=== PATIENT | female | born 1945 | race Caucasian/White ===

== ENCOUNTER 2017-02-09 19:58 | Observation (INO) | payer MEDICARE, OTHER ==
[2017-02-09] MEDS ORDERED: Zofran 4 MG/2 ML VIAL IV ONE ×2 (20:30→22:43)
[2017-02-09] MEDS ORDERED: Sodium Chloride 0.9% 1000 ML 1,000 ML IV STA ×2 (20:30→23:06)
[2017-02-09] MEDS ORDERED: PROTONIX 40 MG IV IV ONE ×2 (20:30→20:56)
--- NOTE | 2017-02-09 20:30 | ERPHSYRPT ---
- History of Present Illness Time Seen by Provider: 02/09/17 20:00 Historian: patient, family Exam Limitations: no limitations Patient Subjective Stated Complaint: STATES THAT SHE HAS HAD NVD X SEVERAL EPISODES SINCE 0500 TODAY AND BEGAN TO HAVE DIZZINESS AND NEAR SYNCOPE "JUST EARLIER" - STATES THAT HER IS IN THE HOSPITAL WITH C-DIFF AND SHE IS CONCERNED THAT SHE MAY BE DEHYDRATED Triage Nursing Assessment: AMBULANCE TO TREATMENT AREA - LIFTED TO CART PER EMS PERSONNEL - MOVES ALL EXTREMITIES WITH SOME RIGIDITY PER CHRONIC PAIN. ALERT/ ORIENTED - JOLLY AFFECT. SKIN PALE/DRY - NO RASH/INJURY. RESPS EASY - NON- LABORED Timing/Duration: today, hour(s) (15) Activities at Onset: other (ate at restaurant prior to Sx onset) Quality: cramping Abdominal Pain Onset Location: generalized abdomen Pain Radiation: no radiation Severity of Pain-Max: mild Severity of Pain-Current: mild Modifying Factors: Improves With: eating, vomiting Associated Symptoms: diarrhea, weakness, No fever/chills Previous symptoms: no prior history Allergies/Adverse Reactions: Penicillins Allergy (Verified 02/09/17 20:02) codeine Adverse Reaction (Severe, Verified 02/09/17 20:02) morphine Adverse Reaction (Verified 02/09/17 20:02) Hx Tetanus, Diphtheria Vaccination/Date Given: Yes Hx Influenza Vaccination/Date Given: Yes Hx Pneumococcal Vaccination/Date Given: No Immunizations Up to Date: Yes - Review of Systems Constitutional: Weakness Eyes: No Symptoms Ears, Nose, & Throat: No Symptoms Respiratory: No Symptoms Cardiac: No Symptoms Abdominal/Gastrointestinal: Abdominal Pain, Nausea, Vomiting, Diarrhea, No Hematemesis, No Hematochezia, No Melena Genitourinary Symptoms: No Symptoms Musculoskeletal: No Symptoms Skin: No Symptoms Neurological: Dizziness Psychological: No Symptoms Endocrine: No Symptoms Hematologic/Lymphatic: No Symptoms - Past Medical History Pertinent Past Medical History: Yes Neurological History: TIA Cardiac History: High Cholesterol, Hypertension Respiratory History: CHF Endocrine Medical History: Hypothyroidism Musculoskeletal History: Other GI Medical History: GERD Psycho-Social History: Depression Other Medical History: CHRONIC BACK AND KNEE PAIN - Past Surgical History Past Surgical History: Yes Gastrointestinal: Cholecystectomy Female Surgical History: Hysterectomy - Social History Smoking Status: Never smoker Exposure to second hand smoke: No Drug Use: none Patient Lives Alone: No - Female History Hx Last Menstrual Period: N/A - Nursing Vital Signs Nursing Vital Signs: Initial Vital Signs Temperature 101.0 F Temperature Source Oral Pulse Rate 90 Respiratory Rate 18 Blood Pressure [Left Arm] 157/63 Pain Intensity 8 - Physical Exam General Appearance: mild distress Eye Exam: eyes nml inspection, No scleral icterus Ears, Nose, Throat Exam: normal ENT inspection, pharynx normal, dry mucous membranes Neck Exam: normal inspection, non-tender, supple, full range of motion Respiratory Exam: normal breath sounds, lungs clear, airway intact Cardiovascular Exam: regular rate/rhythm, normal heart sounds, normal peripheral pulses Gastrointestinal/Abdomen Exam: soft, normal bowel sounds, No tenderness, No distention Back Exam: normal inspection, normal range of motion Extremity Exam: normal inspection, normal range of motion, pelvis stable Neurologic Exam: alert, oriented x 3, cooperative Skin Exam: normal color, warm, dry SpO2 Interpretation: normal SpO2: 95 Oxygen Delivery: Room Air - Course Nursing assessment & vital signs reviewed: Yes EKG Interpreted by Me: RATE, Sinus Rhythm (90), NORMAL AXIS, NORMAL INTERVALS, NORMAL QRS, Other (No acute ischemia.) Ordered Tests: Active Orders 24 hr Category Date Time Status EKG-ER Only STAT Care 02/09/17 20:30 Active IV Insertion STAT Care 02/09/17 20:14 Active NPO (ED) STAT Care 02/09/17 20:30 Active Orthostatic Vital Signs STAT Care 02/09/17 22:43 Active ABDOMEN AND PELVIS W CONTRAST [CT] Stat Exams 02/09/17 20:32 Taken CHEST 1 VIEW (PORTABLE) Stat Exams 02/09/17 20:31 Taken BLOOD CULTURE Stat Lab 02/09/17 21:00 Received CBC W DIFF Stat Lab 02/09/17 20:54 Completed CMP Stat Lab 02/09/17 20:54 Completed LIPASE Stat Lab 02/09/17 20:54 Completed Lactic Acid Stat Lab 02/09/17 21:04 Completed PROTIME WITH INR Stat Lab 02/09/17 20:54 Completed UA Stat Lab 02/09/17 20:31 Ordered Transfer Order Routine Transfer 02/09/17 23:05 Ordered Medication Summary Generic Name Dose Route Start Last Admin Trade Name Freq PRN Reason Stop Dose Admin Levofloxacin/Dextrose 100 mls @ 100 mls/hr 02/09/17 22:56 Levofloxacin 500mg/100ml D5w IV 02/09/17 23:55 STAT ONE Metronidazole 100 mls @ 100 mls/hr 02/09/17 22:53 Flagyl 500 Mg Ivpb IV 02/09/17 23:52 STAT ONE Sodium Chloride 1,000 mls @ 999 mls/hr 02/09/17 23:06 02/09/17 23:07 Sodium Chloride 0.9% 1000 Ml IV 02/10/17 00:06 999 mls/hr .Q1H1M STA Administration Discontinued Medications Generic Name Dose Route Start Last Admin Trade Name Delfina PRN Reason Stop Dose Admin Acetaminophen 625 mg 02/09/17 21:07 02/09/17 21:36 Tylenol 325 Mg PO 02/09/17 21:08 Not Given STAT STA Acetaminophen 650 mg 02/09/17 21:34 02/09/17 21:36 Tylenol 325 Mg PO 02/09/17 21:35 650 mg STAT STA Administration Acetaminophen Confirm 02/09/17 21:35 Tylenol 325 Mg Administered 02/09/17 21:36 Dose 650 mg .ROUTE .STK-MED ONE Sodium Chloride 1,000 mls @ 999 mls/hr 02/09/17 20:30 02/09/17 20:14 Sodium Chloride 0.9% 1000 Ml IV 02/09/17 21:30 999 mls/hr .Q1H1M STA Administration Sodium Chloride Confirm 02/09/17 22:48 Sodium Chloride 0.9% 1000 Ml Administered 02/09/17 22:49 Dose 1,000 mls @ ud .ROUTE .STK-MED ONE Ketorolac Tromethamine 30 mg 02/09/17 22:43 02/09/17 22:55 Toradol 30 Mg Injection IV 02/09/17 22:44 30 mg STAT ONE Administration Ketorolac Tromethamine Confirm 02/09/17 22:48 Toradol 30 Mg Injection Administered 02/09/17 22:49 Dose 30 mg .ROUTE .STK-MED ONE Ondansetron HCl 4 mg 02/09/17 20:30 02/09/17 20:59 Zofran 4 Mg/2 Ml Vial IV 02/09/17 20:31 4 mg STAT ONE Administration Ondansetron HCl Confirm 02/09/17 20:56 Zofran 4 Mg/2 Ml Vial Administered 02/09/17 20:57 Dose 4 mg .ROUTE .STK-MED ONE Ondansetron HCl 4 mg 02/09/17 22:43 02/09/17 22:56 Zofran 4 Mg/2 Ml Vial IV 02/09/17 22:44 4 mg STAT ONE Administration Ondansetron HCl Confirm 02/09/17 22:48 Zofran 4 Mg/2 Ml Vial Administered 02/09/17 22:49 Dose 4 mg .ROUTE .STK-MED ONE Pantoprazole Sodium 40 mg 02/09/17 20:30 02/09/17 21:00 Protonix 40 Mg Iv IV 02/09/17 20:31 40 mg STAT ONE Administration Pantoprazole Sodium Confirm 02/09/17 20:56 Protonix 40 Mg Iv Administered 02/09/17 20:57 Dose 40 mg IV .STK-MED ONE Potassium Chloride 40 meq 02/09/17 21:22 02/09/17 21:36 Klor Con 10 Meq PO 02/09/17 21:23 40 meq STAT ONE Administration Potassium Chloride Confirm 02/09/17 21:35 Klor Con 10 Meq Administered 02/09/17 21:36 Dose 40 meq PO .STK-MED ONE Lab/Rad Data: Laboratory Result Diagrams 02/09/17 20:54 02/09/17 20:54 Laboratory Results 02/09/17 02/09/17 02/09/17 Range/Units 21:04 20:54 20:54 WBC (4.0-10.5) K/mm3 RBC (4.1-5.4) M/mm3 Hgb (12.0-16.0) gm/dl Hct (35-47) % MCV (78-100) fl MCH (26-32) pg MCHC (32-36) g/dl RDW (11.5-14.0) % Plt Count (150-450) K/mm3 MPV (6-9.5) fl Gran % (36.0-66.0) % Lymphocytes % (24.0-44.0) % Monocytes % (0.0-12.0) % Eosinophils % (0.00-5.0) % Basophils % (0.0-0.4) % Basophils # (0-0.4) INR 1.13 (0.8-3.0) Sodium 135 L (136-145) mEq/L Potassium 3.3 L (3.5-5.1) mEq/L Chloride 93 L (98-107) mEq/L Carbon Dioxide 32.9 H (21-32) mEq/L Anion Gap 12.2 (5-15) MEQ/L BUN 12 (9-20) mg/dL Creatinine 0.82 (0.55-1.30) mg/dl Estimated GFR > 60 ML/MIN Glucose 169 H (70-110) MG/DL Lactic Acid 2.0 (0.4-2.0) Calcium 9.1 (8.5-10.1) mg/dL Total Bilirubin 0.8 (0.2-1.0) mg/dL AST 25 (15-37) U/L ALT 24 (12-78) U/L Alkaline Phosphatase 75 (46-116) U/L Serum Total Protein 7.7 (6.4-8.2) gm/dL Albumin 3.8 (3.4-5.0) g/dL Lipase 68 L (73-393) U/L // Range/Units 20:54 WBC 9.3 (4.0-10.5) K/mm3 RBC 4.26 (4.1-5.4) M/mm3 Hgb 13.6 (12.0-16.0) gm/dl Hct 40.0 (35-47) % MCV 93.9 (78-100) fl MCH 31.9 (26-32) pg MCHC 34.0 (32-36) g/dl RDW 12.4 (11.5-14.0) % Plt Count 221 (150-450) K/mm3 MPV 9.3 (6-9.5) fl Gran % 90.5 H (36.0-66.0) % Lymphocytes % 6.8 L (24.0-44.0) % Monocytes % 2.6 (0.0-12.0) % Eosinophils % 0.0 (0.00-5.0) % Basophils % 0.1 (0.0-0.4) % Basophils # 0.01 (0-0.4) INR (0.8-3.0) Sodium (136-145) mEq/L Potassium (3.5-5.1) mEq/L Chloride (98-107) mEq/L Carbon Dioxide (21-32) mEq/L Anion Gap (5-15) MEQ/L BUN (9-20) mg/dL Creatinine (0.55-1.30) mg/dl Estimated GFR ML/MIN Glucose (70-110) MG/DL Lactic Acid (0.4-2.0) Calcium (8.5-10.1) mg/dL Total Bilirubin (0.2-1.0) mg/dL AST (15-37) U/L ALT (12-78) U/L Alkaline Phosphatase (46-116) U/L Serum Total Protein (6.4-8.2) gm/dL Albumin (3.4-5.0) g/dL Lipase (73-393) U/L - Progress Progress: improved Discussed with Dr.: Pierre (accepts as observation) Counseled pt/family regarding: lab results, diagnosis, need for follow-up, rad results - Departure Time of Disposition: 23:00 Departure Disposition: Observation Clinical Impression: Dehydration Sepsis Qualifiers: Sepsis type: sepsis due to unspecified organism Qualified Code(s): A41.9 - Sepsis, unspecified organism Diarrhea Qualifiers: Diarrhea type: unspecified type Qualified Code(s): R19.7 - Diarrhea, unspecified Condition: Stable Critical Care Time: Yes Critical Care Time(excluding separately billable procedures): 75-104 minutes
[2017-02-09] MEDS ORDERED: Zofran 4 MG/2 ML VIAL ONE ×2 (20:56→22:48)
[2017-02-09 20:57] LABS: BASOPHIL % 0.1 % (0.0-0.4); Granulocytes % 90.5 % (36.0-66.0); Lymphocytes % 6.8 % (24.0-44.0); Mean Cell Volume 93.9 fl (78-100); Mean Corpuscular Hemoglobin 31.9 pg (26-32); Mean Platelet Volume 9.3 fl (6-9.5); Monocytes % 2.6 % (0.0-12.0); Platelet Count 221 K/mm3 (150-450); Red Blood Count 4.26 M/mm3 (4.1-5.4); Red Cell Distribution Width 12.4 % (11.5-14.0); White Blood Count 9.3 K/mm3 (4.0-10.5)
[2017-02-09] MEDS ORDERED: TYLENOL 325 MG PO STA ×2 (21:07→21:34)
[2017-02-09 21:13] LABS: INR 1.13 (0.8-3.0); PROTIME 12.6 SECONDS (9.95-12.35)
[2017-02-09 21:19] LABS: ALBUMIN 3.8 g/dL (3.4-5.0); ALKALINE PHOSPHATASE 75 U/L (46-116); ANION GAP 12.2 MEQ/L (5-15); BILIRUBIN,TOTAL 0.8 mg/dL (0.2-1.0); BLOOD UREA NITROGEN 12 mg/dL (9-20); CHLORIDE 93 mEq/L (98-107); Carbon Dioxide 32.9 mEq/L (21-32); Glucose 169 MG/DL (70-110); LIPASE 68 U/L (73-393); Potassium 3.3 mEq/L (3.5-5.1); SGOT/AST 25 U/L (15-37); SGPT/ALT 24 U/L (12-78); SODIUM 135 mEq/L (136-145); Total Protein 7.7 gm/dL (6.4-8.2)
[2017-02-09] MEDS ORDERED: Klor Con 10 MEQ PO ONE ×2 (21:22→21:35)
[2017-02-09] MEDS ORDERED: TYLENOL 325 MG ONE (21:35)
[2017-02-09] MEDS ORDERED: TORAdol 30 mg Injection IV ONE (22:43)
[2017-02-09] MEDS ORDERED: Sodium Chloride 0.9% 1000 ML 2,000 ML ONE (22:48)
[2017-02-09] MEDS ORDERED: TORAdol 30 mg Injection ONE (22:48)
[2017-02-09] MEDS ORDERED: FLAGYL 500 MG IVPB 100 ML IV ONE (22:53)
[2017-02-09] MEDS ORDERED: Levofloxacin 500MG/100ML D5W 100 ML IV ONE (22:56)
[2017-02-09] MEDS ORDERED: FLAGYL 500 MG IV ONE (23:15)
[2017-02-09 23:45] LABS: Collection Type CLEAN CATCH
[2017-02-09 23:46] LABS: Bacteria MODERATE /HPF (NEGATIVE); COMPLETE URINE MICROSCOPIC? YES; Epithelial Cells FEW /HPF (FEW); Ph 6.5 (5-6); WBC 0-2 /HPF (0-5)
[2017-02-09] MEDS ORDERED: Zofran 4 MG/2 ML VIAL IV PRN (23:50)
[2017-02-09] MEDS ORDERED: MORPHINE SULFATE 4 MG INJ IV PRN (23:50)
[2017-02-09] MEDS ORDERED: TORAdol 30 mg Injection IV PRN (23:50)
[2017-02-10] MEDS ORDERED: CLARITIN-D 24HR TABLET PO SCH (01:15)
[2017-02-10] MEDS: CLARITIN 10 MG PO SCH ×2 (01:34→22:20)
[2017-02-10] MEDS: FLAGYL 500 MG IVPB 100 ML IV SCH ×4 (01:35→17:18)
[2017-02-10] MEDS: ZOCOR 20MG PO SCH ×2 (01:35→22:21)
[2017-02-10] MEDS: Lopressor 50 MG PO SCH ×3 (01:35→22:21)
[2017-02-10] MEDS: ceLEXa 20 MG PO SCH ×2 (01:35→22:20)
[2017-02-10] MEDS: celeBREX 100 MG PO SCH ×3 (01:35→22:20)
[2017-02-10] MEDS: xanAX 0.5 MG PO SCH ×2 (01:35→22:21)
[2017-02-10] MEDS ORDERED: TYLENOL 325 MG PO PRN (07:09)
[2017-02-10] MEDS ORDERED: MEDICATION INTERVENTION MC PRN (07:23)
[2017-02-10] MEDS: LASIX 20 MG PO SCH (09:29)
[2017-02-10] MEDS: Calcium 500MG W/Vit D Tablet PO SCH ×2 (09:29→22:20)
[2017-02-10] MEDS: SYNTHROID 50 MCG PO SCH (09:29)
[2017-02-10] MEDS: Ocuvite Tablet PO SCH (09:29)
[2017-02-10] MEDS: Ecotrin 325 MG PO SCH (09:29)
[2017-02-10] MEDS: Protonix 40MG Tablet PO SCH (09:29)
[2017-02-10] MEDS: ANUSOL-HC 2.5% CREAM 30 GM TOP SCH ×2 (09:30→22:18)
[2017-02-10] MEDS: Maxzide-25MG Tablet PO SCH (09:30)
--- NOTE | 2017-02-10 09:33 | XRAY ---
Indication: Nausea, vomiting, and cough. Comparison: None Portable chest demonstrates right hemidiaphragm elevation and left hilar calcified nodes. Remaining heart and lungs normal. Bony thorax intact.
--- NOTE | 2017-02-10 09:38 | XRAY ---
Indication: Nausea, vomiting, and diarrhea. Multiple contiguous axial images obtained through the abdomen and pelvis using 80 cc Isovue 370 contrast only. Comparison: None Lung bases demonstrates minimal bibasilar fibrosis/scarring and left infrahilar calcified nodes. Heart is not enlarged. Noncontrasted stomach and bowel loops appear nonobstructed. Minimal sigmoid diverticulosis without diverticulitis. Normal appendix. Previous hysterectomy and reported cholecystectomy. No free fluid/air. Mild fatty liver. Remaining liver, pancreas, spleen, adrenal glands, kidneys, ureters, and bladder appear unremarkable. Mild aortoiliac calcifications. No AAA or pathologic retroperitoneal lymphadenopathy. Osseous structures intact with moderate degenerative changes throughout the spine. Large mesh graft overlies the right upper quadrant abdominal wall. No ventral/inguinal hernias. Impression: 1. Minimal sigmoid diverticulosis without diverticulitis. 2. Fatty liver. 3. No acute intra-abdominal/pelvic abnormalities. Comment: Preliminary interpretation was made by [facility]. No critical discrepancy. CT DI 23.40
[2017-02-10] MEDS ORDERED: CALCIUM CARBONATE PO SCH (10:00)
[2017-02-10] MEDS ORDERED: [UNRECOGNIZED DRUG - OTHER] PO SCH (10:00)
[2017-02-10] MEDS ORDERED: POTASSIUM GLUCONATE PO SCH ×2 (10:00→22:00)
[2017-02-10] MEDS ORDERED: VITAMIN D3 PO SCH (10:00)
[2017-02-10] MEDS ORDERED: Levofloxacin 500MG/100ML D5W 100 ML IV SCH ×2 (10:00→22:00)
[2017-02-10] MEDS ORDERED: [UNRECOGNIZED DRUG - OTHER] PO SCH (10:00)
[2017-02-10] MEDS ORDERED: HYDROCORTISONE TP SCH (10:00)
[2017-02-10] MEDS ORDERED: NON-FORMULARY ITEM (Triamterene/Hydrochlorothiazid [Triamterene-Hctz 75-50 Mg Tab] 1 EACH) PO SCH (10:00)
[2017-02-10] MEDS ORDERED: PREVNAR 13 SYRINGE IM ONE (10:00)
[2017-02-10] MEDS: Sodium Chloride 0.9% 1000 ML 1,000 ML IV SCH ×2 (12:14→23:56)
[2017-02-10] MEDS ORDERED: PROTONIX 40 MG IV IV SCH (22:00)
[2017-02-10] MEDS ORDERED: DESYREL 50 MG PO SCH (22:00)
[2017-02-10] MEDS: Lomotil PO PRN (22:21)
[2017-02-11] MEDS: FLAGYL 500 MG IVPB 100 ML IV SCH ×2 (00:06→07:03)
[2017-02-11] MEDS: Sodium Chloride 0.9% 1000 ML 1,000 ML IV SCH (00:07)
[2017-02-11] MEDS: Lomotil PO PRN (05:01)
[2017-02-11] MEDS: Flagyl 500 MG PO SCH ×2 (06:47→09:25)
--- NOTE | 2017-02-11 08:10 | PCM.SSS ---
History of Present Illness - Chief Complaint Chief Complaint: vomiting/diarrhea for 1-2 days History of Present Illness: is a 71 year old female. - Review of Systems Constitutional: Fever, No Chills Eyes: No Symptoms Ears, Nose, & Throat: No Symptoms Respiratory: No Cough, No Short Of Breath Cardiac: No Chest Pain, No Edema, No Syncope Abdominal/Gastrointestinal: Abdominal Pain, Nausea, Vomiting, Diarrhea Genitourinary Symptoms: No Dysuria Musculoskeletal: No Back Pain, No Neck Pain Skin: No Rash Neurological: No Dizziness, No Focal Weakness, No Sensory Changes Psychological: No Symptoms Endocrine: No Symptoms Hematologic/Lymphatic: No Symptoms Immunological/Allergic: No Symptoms Medications & Allergies Home Medications: Home Medication List Acetaminophen 325 mg [Tylenol 325 mg] 650 mg PO Q4H PRN 02/09/17 [History Confirmed 02/10/17] Alprazolam [Xanax] 0.5 mg PO HS 02/09/17 [History Confirmed 02/10/17] Atorvastatin Calcium [Lipitor 20MG Tablet] 1 tab PO HS 02/09/17 [History Confirmed 02/10/17] Calcium Carbonate/Vitamin D3 [Calcium 600 + Vit D 400 Tablet] 1 each PO BID [History Confirmed 02/10/17] Celecoxib 100 mg [celeBREX 100 MG] 100 mg PO BID 02/09/17 [History Confirmed 02/10/17] Citalopram Hydrobromide [Celexa] 40 mg PO HS 02/09/17 [History Confirmed ] Furosemide 20 mg [Lasix 20 mg] 20 mg PO DAILY 02/09/17 [History Confirmed 02/10/17] Levothyroxine Sodium 50 Mcg [Synthroid 50 Mcg] 50 mcg PO DAILY 02/09/17 [ History Confirmed 02/09/17] Metoprolol Tartrate 50 mg [Lopressor 50 MG] 50 mg PO BID 02/09/17 [ History Confirmed 02/10/17] PANTOPRAZOLE 40 mg Tablet [Protonix 40MG Tablet] 40 mg PO QAM 02/09/17 [ History Confirmed 02/09/17] Trazodone HCl 50 mg [Desyrel 50 mg] 100 mg PO HS 02/09/17 [History Confirmed 02/10/17] Triamterene/Hydrochlorothiazid [Triamterene-Hctz 75-50 mg Tab] 1 each PO DAILY 02/09/17 [History Confirmed 02/10/17] Aspirin EC 325 mg [Ecotrin 325 MG] 325 mg PO DAILY 02/10/17 [History Confirmed 02/10/17] Beta-Carotene(A) W-C & E/Min [Opti-Vitamins Tablet] 1 each PO DAILY 02/10/17 [ History Confirmed 02/10/17] Hydrocortisone [Proctosol-Hc] 28.35 gm TP BID 02/10/17 [History Confirmed ] Loratadine [Claritin] 10 mg PO HS 02/10/17 [History Confirmed 02/10/17] Potassium Gluconate [Potassium] 1 tab PO HS 02/10/17 [History Confirmed 02/10/17 ] Potassium Gluconate [Potassium] 2 tab PO QAM 02/10/17 [History Confirmed ] Metronidazole 500 mg [Flagyl 500 MG] 500 mg PO TID #15 tablet 02/11/17 [Rx ] Allergies/Adverse Reactions: Allergies Allergy/AdvReac Type Severity Reaction Status Date / Time Penicillins Allergy Verified 02/09/17 20:02 codeine AdvReac Severe Verified 02/09/17 20:02 morphine AdvReac Verified 02/09/17 20:02 - Past Medical History Past Medical History: Yes Neurological History: TIA Cardiac History: High Cholesterol, Hypertension Respiratory History: CHF Endocrine Medical History: Hypothyroidism Musculoskelatal History: Other GI Medical History: GERD Pyscho-Social History: Depression Reproductive Disorders: No Pertinent History Comment: CHRONIC BACK AND KNEE PAIN, sciatica - Female History Hx Last Menstrual Period: N/A Are you now?: No - Past Surgical History Past Surgical History: Yes Neuro Surgical History: No Pertinent History Cardiac History: No Pertinent History Respiratory Surgery: No Pertinent History GI Surgical History: Cholecystectomy Genitourinary Surgical Hx: No Pertinent History Musculskeletal Surgical Hx: No Pertinent History Female Surgical History: Hysterectomy Other Surgical History: inactive kidney disease - Social History Smoking Status: Never smoker Exposure to second hand smoke: No Alcohol: None Drug Use: none - Physical Exam Vital Signs: Vital Signs - 24 hr Temp Pulse Resp BP Pulse Ox 02/11/17 04:00 98.3 F 81 18 128/59 94 L 02/11/17 00:00 20 02/10/17 23:46 98.4 F 82 20 148/63 94 L 02/10/17 20:00 20 02/10/17 19:54 98.5 F 75 20 124/58 93 L 02/10/17 16:00 18 02/10/17 15:42 98.6 F 77 18 172/82 93 L 02/10/17 12:00 98.4 F 86 18 133/64 91 L General Appearance: no apparent distress, alert Neurologic Exam: alert, oriented x 3, cooperative, normal mood/affect, nml cerebellar function, nml station & gait, sensation nml, No motor deficits Eye Exam: PERRL/EOMI, eyes nml inspection Ears, Nose, Throat Exam: normal ENT inspection, TMs normal, pharynx normal, moist mucous membranes Neck Exam: normal inspection, non-tender, supple, full range of motion Respiratory Exam: normal breath sounds, lungs clear, No respiratory distress Cardiovascular Exam: regular rate/rhythm, normal heart sounds, normal peripheral pulses Gastrointestinal/Abdomen Exam: soft, tenderness (generalised), No mass Rectal Exam: not done Back Exam: normal inspection, normal range of motion, No CVA tenderness, No vertebral tenderness Extremity Exam: normal inspection, normal range of motion, pelvis stable Skin Exam: normal color, warm, dry, No rash Lymphatic Exam: No adenopathy Assessment/Plan (1) Dehydration Current Visit: Yes Status: Resolved Code(s): E86.0 - DEHYDRATION (2) Diarrhea Current Visit: Yes Status: Resolved Qualifiers: Diarrhea type: unspecified type Qualified Code(s): R19.7 - Diarrhea, unspecified Code(s): R19.7 - DIARRHEA, UNSPECIFIED (3) Sepsis Current Visit: Yes Status: Resolved Qualifiers: Sepsis type: sepsis due to unspecified organism Qualified Code(s): A41.9 - Sepsis, unspecified organism Hospital Summary - Hospital Course Hospital Course: Chief Complaint Diagnosis sepsis, vomiting/diarrhea Allergies Allergy/AdvReac Type Severity Reaction Status Date / Time Penicillins Allergy Verified 02/09/17 20:02 codeine AdvReac Severe Verified 02/09/17 20:02 morphine AdvReac Verified 02/09/17 20:02 Vital Signs (Last 24 hours) Temp Pulse Resp BP Pulse Ox 02/11/17 04:00 98.3 F 81 18 128/59 94 L 02/11/17 00:00 20 02/10/17 23:46 98.4 F 82 20 148/63 94 L 02/10/17 20:00 20 02/10/17 19:54 98.5 F 75 20 124/58 93 L 02/10/17 16:00 18 02/10/17 15:42 98.6 F 77 18 172/82 93 L 02/10/17 12:00 98.4 F 86 18 133/64 91 L Home Medications Medication Instructions Recorded Confirmed Last Taken Type Acetaminophen 325 mg [Tylenol 650 mg PO Q4H PRN 02/09/17 02/10/17 Unknown History 325 mg] Alprazolam [Xanax] 0.5 mg PO HS 02/09/17 02/10/17 02/08/17 22:00 History Atorvastatin Calcium [Lipitor 20MG 1 tab PO HS 02/09/17 02/10/17 02/08/17 22:00 History Tablet] Calcium Carbonate/Vitamin D3 1 each PO BID 02/09/17 02/10/17 02/09/17 10:00 History [Calcium 600 + Vit D 400 Tablet] Celecoxib 100 mg [celeBREX 100 100 mg PO BID 02/09/17 02/10/17 02/09/17 10:00 History MG] Citalopram Hydrobromide [Celexa] 40 mg PO HS 02/09/17 02/10/17 02/08/17 22:00 History Furosemide 20 mg [Lasix 20 20 mg PO DAILY 02/09/17 02/10/17 02/09/17 10:00 History mg] Levothyroxine Sodium 50 Mcg 50 mcg PO DAILY 02/09/17 02/09/17 02/08/17 10:00 History [Synthroid 50 Mcg] Metoprolol Tartrate 50 mg 50 mg PO BID 02/09/17 02/10/17 02/09/17 10:00 History [Lopressor 50 MG] PANTOPRAZOLE 40 mg Tablet 40 mg PO QAM 02/09/17 02/09/17 02/08/17 10:00 History [Protonix 40MG Tablet] Trazodone HCl 50 mg [Desyrel 50 100 mg PO 02/09/17 02/10/17 02/08/17 22: 00 History mg] Triamterene/Hydrochlorothiazid 1 each PO DAILY 02/09/17 02/10/17 02/09/17 10:00 History [Triamterene-Hctz 75-50 mg Tab] Aspirin EC 325 mg [Ecotrin 325 325 mg PO DAILY 02/10/17 02/10/17 02/09/17 10: 00 History MG] Beta-Carotene(A) W-C & E/Min 1 each PO DAILY 02/10/17 02/10/17 02/09/17 10:00 History [Opti-Vitamins Tablet] Hydrocortisone [Proctosol-Hc] 28.35 gm TP BID 02/10/17 02/10/17 02/08/17 10:00 History Loratadine [Claritin] 10 mg PO 02/10/17 02/10/17 02/08/17 History Potassium Gluconate [Potassium] 1 tab PO 02/10/17 02/10/17 02/08/17 22:00 History Potassium Gluconate [Potassium] 2 tab PO QA 02/10/17 02/10/17 02/09/17 10:00 History Current Medications Generic Name Dose Route Start Last Admin Trade Name Freq PRN Reason Stop Dose Admin Acetaminophen 650 mg 02/10/17 07:09 Tylenol 325 Mg PO 03/12/17 07:08 Q4HPRN PRN pain or fever Alprazolam 0.5 mg 02/10/17 01:00 02/10/17 22:21 Xanax 0.5 Mg PO 03/12/17 00:59 0.5 mg HS CHANO Administration Aspirin 325 mg 02/10/17 10:00 02/10/17 09:29 Ecotrin 325 Mg PO 03/12/17 09:59 325 mg DAILY CHANO Administration Calcium Carbonate 1 tab 02/10/17 10:00 02/10/17 22:20 Calcium 500mg W/Vit D Tablet PO 03/12/17 09:59 1 tab BID CHANO Administration Celecoxib 100 mg 02/10/17 01:15 02/10/17 22:20 Celebrex 100 Mg PO 03/12/17 01:14 100 mg BID CHANO Administration Citalopram Hydrobromide 40 mg 02/10/17 01:15 02/10/17 22:20 Celexa 20 Mg PO 03/12/17 01:14 40 mg HS CHANO Administration Diphenoxylate HCl/Atropine 1 tablet 02/10/17 22:03 02/11/17 05:01 Lomotil PO 03/12/17 22:02 1 tablet Q4H PRN PRN Administration DIARRHEA Furosemide 20 mg 02/10/17 10:00 02/10/17 09:29 Lasix 20 Mg PO 03/12/17 09:59 20 mg DAILY CHANO Administration Hydrocortisone 0 gm 02/10/17 10:00 02/10/17 22:18 Anusol-Hc 2.5% Cream 30 Gm TOP 03/12/17 09:59 1 gm BID CHANO Administration Levofloxacin/Dextrose 100 mls @ 100 mls/hr 02/10/17 22:00 02/10/17 23:49 Levofloxacin 500mg/100ml D5w IV 03/12/17 21:59 100 mls/hr Q24H22 CHANO Administration Levothyroxine Sodium 50 mcg 02/10/17 10:00 02/10/17 09:29 Synthroid 50 Mcg PO 03/12/17 09:59 50 mcg DAILY CHANO Administration Loratadine 10 mg 02/10/17 01:30 02/10/17 22:20 Claritin 10 Mg PO 03/12/17 01:29 10 mg HS CHANO Administration Metoprolol Tartrate 50 mg 02/10/17 01:15 02/10/17 22:21 Lopressor 50 Mg PO 03/12/17 01:14 50 mg BID CHANO Administration Metronidazole 500 mg 02/11/17 06:00 02/11/17 06:47 Flagyl 500 Mg PO 03/13/17 05:59 500 mg TID CHANO Administration Multivitamins/Minerals 1 tab 02/10/17 10:00 02/10/17 09:29 Ocuvite Tablet PO 03/12/17 09:59 1 tab DAILY CHANO Administration Ondansetron HCl 4 mg 02/09/17 23:50 02/10/17 09:38 Zofran 4 Mg/2 Ml Vial IV 03/11/17 23:49 4 mg Q6H PRN PRN Administration NAUSEA/VOMITING Pantoprazole Sodium 40 mg 02/10/17 10:00 02/10/17 09:29 Protonix 40mg Tablet PO 03/12/17 09:59 40 mg QAM CHANO Administration Simvastatin 20 mg 02/10/17 01:15 02/10/17 22:21 Zocor 20mg PO 03/12/17 01:14 20 mg HS CHANO Administration Trazodone HCl 100 mg 02/10/17 22:00 02/10/17 22:20 Desyrel 50 Mg PO 03/12/17 21:59 100 mg HS CHANO Administration Triamterene/HCTZ 2 tab 02/10/17 10:00 02/10/17 09:30 Maxzide-25mg Tablet PO 03/12/17 09:59 2 tab DAILY CHANO Administration Discontinued Medications Generic Name Dose Route Start Last Admin Trade Name Freq PRN Reason Stop Dose Admin Acetaminophen 625 mg 02/09/17 21:07 02/09/17 21:36 Tylenol 325 Mg PO 02/09/17 21:08 Not Given STAT STA Acetaminophen 650 mg 02/09/17 21:34 02/09/17 21:36 Tylenol 325 Mg PO 02/09/17 21:35 650 mg STAT STA Administration Acetaminophen Confirm 02/09/17 21:35 Tylenol 325 Mg Administered 02/09/17 21:36 Dose 650 mg .ROUTE .STK-MED ONE Sodium Chloride 1,000 mls @ 999 mls/hr 02/09/17 20:30 02/09/17 20:14 Sodium Chloride 0.9% 1000 Ml IV 02/09/17 21:30 999 mls/hr .Q1H1M STA Administration Sodium Chloride Confirm 02/09/17 22:48 Sodium Chloride 0.9% 1000 Ml Administered 02/09/17 22:49 Dose 1,000 mls @ ud .ROUTE .STK-MED ONE Levofloxacin/Dextrose 100 mls @ 100 mls/hr 02/09/17 22:56 02/10/17 04:08 Levofloxacin 500mg/100ml D5w IV 02/09/17 23:55 Not Given STAT ONE Metronidazole 100 mls @ 100 mls/hr 02/09/17 22:53 02/09/17 23:16 Flagyl 500 Mg Ivpb IV 02/09/17 23:52 100 mls/hr STAT ONE Administration Sodium Chloride 1,000 mls @ 999 mls/hr 02/09/17 23:06 02/09/17 23:07 Sodium Chloride 0.9% 1000 Ml IV 02/10/17 00:06 999 mls/hr .Q1H1M STA Administration Metronidazole Confirm 02/09/17 23:15 Flagyl 500 Mg Ivpb Administered 02/09/17 23:16 Dose 100 mls @ ud IV .STK-MED ONE Levofloxacin/Dextrose 100 mls @ 100 mls/hr 02/10/17 10:00 02/10/17 02:45 Levofloxacin 500mg/100ml D5w IV 03/12/17 09:59 100 mls/hr Q24H10 CHANO Administration Metronidazole 100 mls @ 100 mls/hr 02/10/17 00:00 02/11/17 07:03 Flagyl 500 Mg Ivpb IV 03/12/17 00:00 Not Given Q6HT CHANO Sodium Chloride 1,000 mls @ 100 mls/hr 02/09/17 23:50 02/11/17 00:07 Sodium Chloride 0.9% 1000 Ml IV 03/11/17 23:49 Not Given .Q10H CHANO Ketorolac Tromethamine 30 mg 02/09/17 22:43 02/09/17 22:55 Toradol 30 Mg Injection IV 02/09/17 22:44 30 mg STAT ONE Administration Ketorolac Tromethamine Confirm 02/09/17 22:48 Toradol 30 Mg Injection Administered 02/09/17 22:49 Dose 30 mg .ROUTE .STK-MED ONE Ketorolac Tromethamine 30 mg 02/09/17 23:50 Toradol 30 Mg Injection IV 02/14/17 23:49 Q6H PRN PRN PAIN Loratadine/Pseudoephedrine Sulfate 1 each 02/10/17 01:15 02/10/17 20:12 Claritin-D 24hr Tablet PO 03/12/17 01:14 Not Given HS CHANO Morphine Sulfate 4 mg 02/09/17 23:50 Morphine Sulfate 4 Mg Inj IV 02/14/17 23:49 Q4H PRN PRN PAIN Ondansetron HCl 4 mg 02/09/17 20:30 02/09/17 20:59 Zofran 4 Mg/2 Ml Vial IV 02/09/17 20:31 4 mg STAT ONE Administration Ondansetron HCl Confirm 02/09/17 20:56 Zofran 4 Mg/2 Ml Vial Administered 02/09/17 20:57 Dose 4 mg .ROUTE .STK-MED ONE Ondansetron HCl 4 mg 02/09/17 22:43 02/09/17 22:56 Zofran 4 Mg/2 Ml Vial IV 02/09/17 22:44 4 mg STAT ONE Administration Ondansetron HCl Confirm 02/09/17 22:48 Zofran 4 Mg/2 Ml Vial Administered 02/09/17 22:49 Dose 4 mg .ROUTE .STK-MED ONE Pantoprazole Sodium 40 mg 02/09/17 20:30 02/09/17 21:00 Protonix 40 Mg Iv IV 02/09/17 20:31 40 mg STAT ONE Administration Pantoprazole Sodium Confirm 02/09/17 20:56 Protonix 40 Mg Iv Administered 02/09/17 20:57 Dose 40 mg IV .STK-MED ONE Pantoprazole Sodium 40 mg 02/10/17 22:00 Protonix 40 Mg Iv IV 03/12/17 21:59 Q24H22 CHANO Pneumococcal 13-Valent Conj Vacc 0.5 ml 02/10/17 10:00 02/10/17 09:40 Prevnar 13 Syringe IM 02/10/17 10:01 0.5 ml .ONCE ONE Administration Potassium Chloride 40 meq 02/09/17 21:22 02/09/17 21:36 Klor Con 10 Meq PO 02/09/17 21:23 40 meq STAT ONE Administration Potassium Chloride Confirm 02/09/17 21:35 Klor Con 10 Meq Administered 02/09/17 21:36 Dose 40 meq PO .STK-MED ONE Intake & Output (Last 24 hours) 04/26/02/09/17 02/10/17 02/11/17 11:59 11:59 11:59 11:59 Intake Total 1133 2512 Output Total 0 Balance 1133 2512 Weight 100.561 kg Microbiology Results (Last 24 hours) 02/09/17 21:45 Blood - Pending 02/09/17 21:45 Blood Blood Culture - Preliminary NO GROWTH TO DATE 02/09/17 21:00 Blood - Pending 02/09/17 21:00 Blood Blood Culture - Preliminary NO GROWTH TO DATE Orders (Last 24 hours) Category Date Time Status Acetaminophen 325 mg [Tylenol 325 mg] Med 02/10/17 07:09 Active 650 mg PO Q4HPRN PRN Aspirin EC 325 mg [Ecotrin 325 MG] Med 02/10/17 10:00 Active 325 mg PO DAILY Beta-Carotene(A) W-C & E/Min [Ocuvite Tablet] Med 02/10/17 10:00 Active 1 tab PO DAILY Calcium Carb/Vitamin D 500 mg* [Calcium 500MG W/Vit D Med 02/10/17 10:00 Active Tablet] 1 tab PO BID Diphenoxylate HCl/Atropine [Lomotil] Med 02/10/17 22:03 Active 1 tablet PO Q4H PRN PRN Furosemide 20 mg [Lasix 20 mg] Med 02/10/17 10:00 Active 20 mg PO DAILY Hctz/Triamteren 37.5 mg/25 mg* [Maxzide-25MG Tablet] Med 02/10/17 10:00 Active 2 tab PO DAILY Hydrocortisone 2.5% 30 gm [Anusol-Hc 2.5% Cream 30 Med 02/10/17 10:00 Active gm] 0 gm TOP BID Levofloxacin [Levofloxacin 500MG/100ML D5W] 100 ml Med 02/10/17 10:00 Discontinued IV Q24H10 Levofloxacin [Levofloxacin 500MG/100ML D5W] 100 ml Med 02/10/17 22:00 Active IV Q24H22 Levothyroxine Sodium 50 Mcg [Synthroid 50 Mcg] Med 02/10/17 10:00 Active 50 mcg PO DAILY Medication Intervention Med 02/10/17 07:23 Active 1 each MC .RN TO CLARIFY PRN Metronidazole 500 mg [Flagyl 500 MG] Med 02/11/17 06:00 Active 500 mg PO TID PANTOPRAZOLE 40 mg Tablet [Protonix 40MG Tablet] Med 02/10/17 10:00 Active 40 mg PO QAM Pantoprazole 40 mg [Protonix 40 mg IV] Med 02/10/17 22:00 Discontinued 40 mg IV Q24H22 Pneumoc 13-Haritha Conj-Dip Crm/Pf [Prevnar 13 Syringe] Med 02/10/17 10:00 Discontinued 0.5 ml IM .ONCE ONE Trazodone HCl 50 mg [Desyrel 50 mg] Med 02/10/17 22:00 Active 100 mg PO HS Patient Care Notes (Last 24 hours) 02/11/17 06:49 Nursing Note by Amada Mir Dr. was called concerning pt IV infiltration and pt refusal to allow staff to obtain new access. Pt refused d/t "I am a very hard stick and I just cant go through that again." PT was educated on why needs IV access to tx pt dx, pt expressed understanding but cont to refuse. Pt offered numerous picks of diff staff and pt was offered to give time and rest for a bit before we try to obtain access again. Pt cont to refuse x3 attempts. updated on pt refusal , IV meds, ABX needed, fluids running and status of loose stools this shift. Dr. Sorensen gave new orders to, "Stop all IV pain meds, DC IV fluids, Dc IV access orders and change Flagyl order to Flagyl 500mg PO TID." Orders read back and accepted, placed in MAR. Initialized on 02/11/17 06:49 - END OF NOTE 02/10/17 22:00 (created 02/11/17 00:32) Nursing Note by Amada Mir Dr. was called and updated on pt request for "something for my diarrhea ". updated on pt status, allergies and current meds. Dr. Sorensen gave new order for, "Lomotil 1 cap PO Q4H PRN for Diarrhea." Order read back and verified , order placed in MAR. Initialized on 02/11/17 00:32 - END OF NOTE - Vitals & Intake/Output Vital Signs: Vital Signs Temperature 98.3 F 02/11/17 04:00 Pulse Rate 81 02/11/17 04:00 Respiratory Rate 18 02/11/17 04:00 Blood Pressure 128/59 02/11/17 04:00 O2 Sat by Pulse Oximetry 94 L 02/11/17 04:00 Intake & Output: Intake & Output 02/08/17 02/09/17 02/10/17 02/11/17 11:59 11:59 11:59 11:59 Intake Total 1133 2512 Output Total 0 Balance 1133 2512 Weight 100.561 kg - Lab Result Diagrams: 02/09/17 20:54 02/09/17 20:54 - Discharge Discharge Date: 02/11/17 Disposition: Home, Self-Care Condition: Stable Prescriptions: New Metronidazole 500 mg [Flagyl 500 MG] 500 mg PO TID #15 tablet Continue Hydrocortisone [Proctosol-Hc] 28.35 gm TP BID Aspirin EC 325 mg [Ecotrin 325 MG] 325 mg PO DAILY Potassium Gluconate [Potassium] 1 tab PO HS Potassium Gluconate [Potassium] 2 tab PO QAM Calcium Carbonate/Vitamin D3 [Calcium 600 + Vit D 400 Tablet] 1 each PO BID Acetaminophen 325 mg [Tylenol 325 mg] 650 mg PO Q4H PRN PRN Reason: pain or fever Celecoxib 100 mg [celeBREX 100 MG] 100 mg PO BID Triamterene/Hydrochlorothiazid [Triamterene-Hctz 75-50 mg Tab] 1 each PO DAILY Furosemide 20 mg [Lasix 20 mg] 20 mg PO DAILY Metoprolol Tartrate 50 mg [Lopressor 50 MG] 50 mg PO BID Citalopram Hydrobromide [Celexa] 40 mg PO HS Trazodone HCl 50 mg [Desyrel 50 mg] 100 mg PO HS Atorvastatin Calcium [Lipitor 20MG Tablet] 1 tab PO HS Alprazolam [Xanax] 0.5 mg PO HS PANTOPRAZOLE 40 mg Tablet [Protonix 40MG Tablet] 40 mg PO QAM Levothyroxine Sodium 50 Mcg [Synthroid 50 Mcg] 50 mcg PO DAILY Beta-Carotene(A) W-C & E/Min [Opti-Vitamins Tablet] 1 each PO DAILY Loratadine [Claritin] 10 mg PO HS Follow up with: INNA SORENSEN MD [Primary Care Provider] - 1 Week
[2017-02-11 08:50] VITALS: BP 140/61; PULSE 84; O2SAT 92
[2017-02-11] MEDS: Protonix 40MG Tablet PO SCH (09:20)
[2017-02-11] MEDS: Calcium 500MG W/Vit D Tablet PO SCH (09:20)
[2017-02-11] MEDS: Maxzide-25MG Tablet PO SCH (09:20)
[2017-02-11] MEDS: celeBREX 100 MG PO SCH (09:21)
[2017-02-11] MEDS: LASIX 20 MG PO SCH (09:21)
[2017-02-11] MEDS: Lopressor 50 MG PO SCH (09:21)
[2017-02-11] MEDS: Ocuvite Tablet PO SCH (09:21)
[2017-02-11] MEDS: Ecotrin 325 MG PO SCH (09:21)
[2017-02-11] MEDS: SYNTHROID 50 MCG PO SCH (09:21)
[2017-02-11] MEDS: ANUSOL-HC 2.5% CREAM 30 GM TOP SCH (09:22)
== END 2017-02-11 10:38 | disposition home or self-care (01) ==
LOC: ED 19:58 → MED SURG 23:40
PROVIDERS: ADMIT General Practice; ATTEND General Practice
DX: E86.0 Dehydration (principal); R19.7 Diarrhea, unspecified; A41.9 Sepsis, unspecified organism; Z79.899 Other long term (current) drug therapy; Z23 Encounter for immunization
CPT/HCPCS: 36000; 36415; 71010; 74177; 80053; 81000; 83605; 83690; 85025; 85610; 87040; 87493; 90670; 93005; 93268; 96360; 96361; 96365; 96367; 96374; 96375; 96376; 99285; G0378; J1885; J1956; J2405; A9270-GY

== ENCOUNTER 2017-03-21 21:46 | Emergency (ER) | payer MEDICARE, OTHER ==
[2017-03-21] MEDS ORDERED: Lopressor 25MG Tab PO ONE (22:27)
[2017-03-21] MEDS ORDERED: ATARAX 25 MG PO ONE (22:28)
[2017-03-21] MEDS ORDERED: Lopressor 50 MG ONE (22:34)
[2017-03-21] MEDS ORDERED: ATARAX 25 MG ONE (22:35)
--- NOTE | 2017-03-21 22:52 | ERPHSYRPT ---
- History of Present Illness Time Seen by Provider: 03/21/17 21:57 Source: patient, family Patient Subjective Stated Complaint: states she has been out of her metoprolol for three days andsaid she was having blurry vision, sauid she didnt feel right called dr sorensen and he had her come in to ER Triage Nursing Assessment: patient has been unable to get metoprolol prescription for 3 days today when coming home and walking up to house vision got blurred called and he had take bp was 190/110. pulses equal bialteral radius, lung sounds clear, vision is still blurry, gait was steady, states she feels funny , edema noted lower extremities non pitting Physician History: CC: high blood pressure Hx: 72 y/o patient of Dr Sorensen with hx of HTN and palpitations. She usually takes lopressor 50mg BID. Ran out three days ago as was unable to stop at the drug store to pick it up. She had high blood pressure and some palpitations today. Called the doctor and pharmacy and was told to come to ER. No chest pain. No syncope. Symptoms moderate. Allergies/Adverse Reactions: Penicillins Allergy (Verified 02/09/17 20:02) codeine Adverse Reaction (Severe, Verified 02/09/17 20:02) morphine Adverse Reaction (Verified 02/09/17 20:02) Home Medications: Acetaminophen 325 mg [Tylenol 325 mg] 650 mg PO Q4H PRN 02/09/17 [History] Alprazolam [Xanax] 0.5 mg PO HS 02/09/17 [History] Atorvastatin Calcium [Lipitor 20MG Tablet] 1 tab PO HS 02/09/17 [History] Calcium Carbonate/Vitamin D3 [Calcium 600 + Vit D 400 Tablet] 1 each PO BID [History] Celecoxib 100 mg [celeBREX 100 MG] 100 mg PO BID 02/09/17 [History] Citalopram Hydrobromide [Celexa] 40 mg PO HS 02/09/17 [History] Furosemide 20 mg [Lasix 20 mg] 20 mg PO DAILY 02/09/17 [History] Levothyroxine Sodium 50 Mcg [Synthroid 50 Mcg] 50 mcg PO DAILY 02/09/17 [ History] Metoprolol Tartrate 50 mg [Lopressor 50 MG] 50 mg PO BID 02/09/17 [History ] PANTOPRAZOLE 40 mg Tablet [Protonix 40MG Tablet] 40 mg PO QAM 02/09/17 [ History] Trazodone HCl 50 mg [Desyrel 50 mg] 100 mg PO 02/09/17 [History] Triamterene/Hydrochlorothiazid [Triamterene-Hctz 75-50 mg Tab] 1 each PO DAILY 02/09/17 [History] Aspirin EC 325 mg [Ecotrin 325 MG] 325 mg PO DAILY 02/10/17 [History] Beta-Carotene(A) W-C & E/Min [Opti-Vitamins Tablet] 1 each PO DAILY 02/10/17 [ History] Hydrocortisone [Proctosol-Hc] 28.35 gm TP BID 02/10/17 [History] Loratadine [Claritin] 10 mg PO 02/10/17 [History] Potassium Gluconate [Potassium] 1 tab PO 02/10/17 [History] Potassium Gluconate [Potassium] 2 tab PO QAM 02/10/17 [History] Hx Tetanus, Diphtheria Vaccination/Date Given: Yes Hx Influenza Vaccination/Date Given: Yes Hx Pneumococcal Vaccination/Date Given: Yes Immunizations Up to Date: Yes - Review of Systems Constitutional: No Fever, No Chills Eyes: No Symptoms Ears, Nose, & Throat: No Symptoms Respiratory: No Cough, No Dyspnea Cardiac: Palpitations, No Chest Pain, No Syncope Abdominal/Gastrointestinal: No Abdominal Pain, No Nausea, No Vomiting Psychological: Anxiety All Other Systems: Reviewed and Negative - Past Medical History Pertinent Past Medical History: Yes Neurological History: TIA Cardiac History: High Cholesterol, Hypertension Respiratory History: CHF Endocrine Medical History: Hypothyroidism Musculoskeletal History: Other GI Medical History: GERD Psycho-Social History: Depression Female Reproductive Disorders: No Pertinent History Other Medical History: CHRONIC BACK AND KNEE PAIN, sciatica - Past Surgical History Past Surgical History: Yes Neuro Surgical History: No Pertinent History Cardiac: No Pertinent History Respiratory: No Pertinent History Gastrointestinal: Cholecystectomy Genitourinary: No Pertinent History Musculoskeletal: No Pertinent History Female Surgical History: Hysterectomy Other Surgical History: inactive kidney disease - Social History Smoking Status: Never smoker Exposure to second hand smoke: No Drug Use: none Patient Lives Alone: No - Nursing Vital Signs Nursing Vital Signs: Initial Vital Signs Temperature 97.8 F Temperature Source Oral Pulse Rate 88 Respiratory Rate 18 Blood Pressure [Left Arm] 140/72 Blood Pressure [Right Arm] 190/90 Pain Intensity 0 - Physical Exam General Appearance: alert Eye Exam: PERRL/EOMI Ears, Nose, Throat Exam: normal ENT inspection, moist mucous membranes Neck Exam: normal inspection, non-tender, supple Respiratory Exam: normal breath sounds, lungs clear Cardiovascular Exam: regular rate/rhythm, No murmur Gastrointestinal/Abdomen Exam: soft, No tenderness, No distention Extremity Exam: pedal edema (trace) Neurologic Exam: alert, oriented x 3, cooperative, sensation nml, No motor deficits Skin Exam: warm, dry, No rash SpO2 Interpretation: normal SpO2: 96 Oxygen Delivery: Room Air - Course Nursing assessment & vital signs reviewed: Yes EKG Interpreted by Me: RATE (92), Sinus Rhythm, NORMAL AXIS, NORMAL INTERVALS ( QTc 463), NORMAL ST-T, Other (Poor R wave progression, unchanged from prior tracing) Ordered Tests: Active Orders 24 hr Category Date Time Status Director Process Improvement STAT Care 03/21/17 22:27 Active EKG-ER Only STAT Care 03/21/17 22:27 Active BMP Stat Lab 03/21/17 22:53 Completed Medication Summary Discontinued Medications Generic Name Dose Route Start Last Admin Trade Name Angelq PRN Reason Stop Dose Admin Hydroxyzine HCl 25 mg 03/21/17 22:28 03/21/17 22:36 Atarax 25 Mg PO 03/21/17 22:29 25 mg STAT ONE Administration Hydroxyzine HCl Confirm 03/21/17 22:35 Atarax 25 Mg Administered 03/21/17 22:36 Dose 25 mg .ROUTE .STK-MED ONE Metoprolol Tartrate 50 mg 03/21/17 22:27 03/21/17 22:37 Lopressor 25mg Tab PO 03/21/17 22:28 50 mg STAT ONE Administration Metoprolol Tartrate Confirm 03/21/17 22:34 Lopressor 50 Mg Administered 03/21/17 22:35 Dose 50 mg .ROUTE .STK-MED ONE Lab/Rad Data: Laboratory Result Diagrams 03/21/17 22:53 Laboratory Results 03/21/17 Range/Units 22:53 Sodium 136 (136-145) mEq/L Potassium 3.4 L (3.5-5.1) mEq/L Chloride 95 L (98-107) mEq/L Carbon Dioxide 31.2 (21-32) mEq/L Anion Gap 13.1 (5-15) MEQ/L BUN 11 (9-20) mg/dL Creatinine 0.97 (0.55-1.30) mg/dl Estimated GFR 60 ML/MIN Glucose 161 H (70-110) MG/DL Calcium 9.1 (8.5-10.1) mg/dL - Progress Progress Note: 03/21/17 22:51 Will restart metoprolol and she will follow up with Dr Sorensen. 03/21/17 23:38 BP and HR good. She feels much better. Advised recheck glucose with Dr Sorensen. Will release. She has Rx to get at drugstore tomorrow. Counseled pt/family regarding: lab results, diagnosis, need for follow-up - Departure Time of Disposition: 23:39 Departure Disposition: Home Clinical Impression: Hypertension, Anxiety Condition: Stable Critical Care Time: No Referrals: INNA SORENSEN MD [Primary Care Provider] - Instructions: High Blood Pressure Additional Instructions: You need to have your blood sugar rechecked. Get metoprolol Rx filled tomorrow AM. Return for problems or concerns.
[2017-03-21 23:18] LABS: ANION GAP 13.1 MEQ/L (5-15); Carbon Dioxide 31.2 mEq/L (21-32); Potassium 3.4 mEq/L (3.5-5.1)
[2017-03-21 23:32] VITALS: BP 140/72; PULSE 88
[2017-03-21 23:41] VITALS: O2SAT 96
== END 2017-03-21 23:45 | disposition home or self-care (01) ==
LOC: ED 21:46
DX: I10 Essential (primary) hypertension (principal); F41.9 Anxiety disorder, unspecified; R00.2 Palpitations
CPT/HCPCS: 36415; 80048; 93005; 93041; 99284; A9270-GY

== ENCOUNTER 2019-04-19 14:13 | Inpatient (IN) | payer MEDICARE, OTHER ==
[2019-04-19] MEDS ORDERED: TYLENOL EXTRA STRENGTH 500 MG PO PRN (15:54)
[2019-04-19] MEDS ORDERED: Dulcolax 10 MG SUPP RC PRN (15:54)
[2019-04-19] MEDS ORDERED: MILK OF MAGNESIA 30 ML PO PRN (15:54)
[2019-04-19] MEDS ORDERED: Miralax Powder 17GM PACKET PO PRN (15:54)
[2019-04-19] MEDS ORDERED: [UNRECOGNIZED DRUG - OTHER] PO SCH (16:00)
[2019-04-19] MEDS ORDERED: MEDICATION INTERVENTION PO SCH (16:15)
[2019-04-19] MEDS ORDERED: Aplisol ID ONE (16:29)
[2019-04-19 17:49] LABS: BLOOD UREA NITROGEN 10 mg/dL (7-17); CHLORIDE 79 mmol/L (98-107); Calcium 8.3 mg/dL (8.4-10.2); Carbon Dioxide 39 mmol/L (22-30); Creatinine 1 0.63 mg/dL (0.52-1.04); Glucose 139 mg/dL (74-106); Potassium 3.3 mmol/L (3.5-5.1); SODIUM 127 mmol/L (137-145)
[2019-04-19] MEDS: Norco 10/325 MG Tablet PO PRN (21:31)
[2019-04-19] MEDS: celeBREX 100 MG PO SCH (21:32)
[2019-04-19] MEDS: Lopressor 50 MG PO SCH (21:32)
[2019-04-19] MEDS: ceLEXa 20 MG PO SCH (21:33)
[2019-04-19] MEDS: DESYREL 50 MG PO SCH (21:34)
[2019-04-19] MEDS: xanAX 0.5 MG PO SCH (21:35)
[2019-04-19] MEDS ORDERED: SENOKOT 8.6 MG PO SCH (22:00)
[2019-04-19] MEDS ORDERED: Colace 100 MG PO SCH (22:00)
[2019-04-19] MEDS ORDERED: Oxy-IR 5 MG PO SCH (22:00)
[2019-04-19] MEDS ORDERED: NON-FORMULARY ITEM (Docusate Sodium [Stool Softener] 100 MG) PO SCH (22:00)
[2019-04-19] MEDS ORDERED: celeBREX 100 MG PO SCH (22:00)
[2019-04-19] MEDS ORDERED: NON-FORMULARY ITEM (Celecoxib [Celebrex] 200 MG) PO SCH (22:00)
[2019-04-19] MEDS ORDERED: NON-FORMULARY ITEM (Citalopram Hydrobromide [Citalopram Hbr] 40 MG) PO SCH (22:00)
[2019-04-19] MEDS ORDERED: NON-FORMULARY ITEM (Trazodone Hcl [Trazodone Hcl] 100 MG) PO SCH (22:00)
[2019-04-20] MEDS: Norco 10/325 MG Tablet PO PRN ×4 (01:34→18:04)
[2019-04-20] MEDS: Calcium 500MG W/Vit D Tablet PO SCH ×2 (09:29→21:12)
[2019-04-20] MEDS: celeBREX 100 MG PO SCH ×2 (09:29→21:12)
[2019-04-20] MEDS: LASIX 20 MG PO SCH (09:30)
[2019-04-20] MEDS: FISH OIL 1,000 MG CAPSULE PO SCH (09:30)
[2019-04-20] MEDS: Klor Con 10 MEQ PO SCH ×2 (09:30→21:13)
[2019-04-20] MEDS: Ecotrin 325 MG PO SCH ×2 (09:30→21:12)
[2019-04-20] MEDS: Colace 100 MG PO SCH (09:30)
[2019-04-20] MEDS: Lopressor 50 MG PO SCH ×2 (09:30→21:20)
[2019-04-20] MEDS: Protonix 40MG Tablet PO SCH (09:31)
[2019-04-20] MEDS: Maxzide-25MG Tablet PO SCH (09:31)
[2019-04-20] MEDS: ZOCOR 20MG PO SCH (09:31)
[2019-04-20] MEDS: THERAGRAN MULTIVITAMIN PO SCH (09:31)
[2019-04-20] MEDS: SYNTHROID 50 MCG PO SCH (09:31)
[2019-04-20] MEDS ORDERED: VIT K1 PO SCH (10:00)
[2019-04-20] MEDS ORDERED: OMEGA PO SCH (10:00)
[2019-04-20] MEDS ORDERED: CALCIUM CARB PO SCH (10:00)
[2019-04-20] MEDS ORDERED: ZOCOR 20MG PO SCH (10:00)
[2019-04-20] MEDS ORDERED: FATTY ACIDS PO SCH (10:00)
[2019-04-20] MEDS ORDERED: VITAMIN D3 PO SCH (10:00)
[2019-04-20] MEDS ORDERED: [UNRECOGNIZED DRUG - OTHER] PO SCH (10:00)
[2019-04-20] MEDS ORDERED: NON-FORMULARY ITEM (Atorvastatin Calcium [Atorvastatin Calcium] 20 MG) PO SCH (10:00)
[2019-04-20] MEDS ORDERED: NON-FORMULARY ITEM (Aspirin [Aspirin] 325 MG) PO SCH (10:00)
[2019-04-20] MEDS ORDERED: Maxzide-25MG Tablet PO SCH (10:00)
[2019-04-20] MEDS ORDERED: NON-FORMULARY ITEM (Multivitamin [Multi-Vitamin Daily] 1 EACH) PO SCH (10:00)
[2019-04-20] MEDS ORDERED: GLUCOSAMINE SULFATE PO SCH (10:00)
[2019-04-20] MEDS ORDERED: Ecotrin 325 MG PO SCH (10:00)
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
[2019-04-20] MEDS: ceLEXa 20 MG PO SCH (21:12)
[2019-04-20] MEDS: DESYREL 50 MG PO SCH (21:12)
[2019-04-20] MEDS: Glucophage 500 MG PO SCH (21:13)
[2019-04-20] MEDS: xanAX 0.5 MG PO SCH (21:13)
[2019-04-21] MEDS: Colace 100 MG PO SCH (09:31)
[2019-04-21] MEDS: Norco 10/325 MG Tablet PO PRN ×3 (09:31→17:31)
[2019-04-21] MEDS: Calcium 500MG W/Vit D Tablet PO SCH ×2 (09:31→21:09)
[2019-04-21] MEDS: celeBREX 100 MG PO SCH ×2 (09:31→21:09)
[2019-04-21] MEDS: Ecotrin 325 MG PO SCH ×2 (09:32→21:10)
[2019-04-21] MEDS: FISH OIL 1,000 MG CAPSULE PO SCH (09:32)
[2019-04-21] MEDS: Protonix 40MG Tablet PO SCH (09:33)
[2019-04-21] MEDS: Klor Con 10 MEQ PO SCH ×2 (09:33→21:10)
[2019-04-21] MEDS: Lopressor 50 MG PO SCH ×2 (09:33→21:10)
[2019-04-21] MEDS: LASIX 20 MG PO SCH (09:33)
[2019-04-21] MEDS: Maxzide-25MG Tablet PO SCH (09:33)
[2019-04-21] MEDS: ZOCOR 20MG PO SCH (09:34)
[2019-04-21] MEDS: THERAGRAN MULTIVITAMIN PO SCH (09:34)
[2019-04-21] MEDS: SYNTHROID 50 MCG PO SCH (09:34)
[2019-04-21] MEDS: ceLEXa 20 MG PO SCH (21:09)
[2019-04-21] MEDS: Glucophage 500 MG PO SCH (21:10)
[2019-04-21] MEDS: DESYREL 50 MG PO SCH (21:10)
[2019-04-21] MEDS: xanAX 0.5 MG PO SCH (21:10)
[2019-04-22] MEDS: Norco 10/325 MG Tablet PO PRN ×5 (01:59→19:49)
[2019-04-22] MEDS: Calcium 500MG W/Vit D Tablet PO SCH ×2 (09:12→21:25)
[2019-04-22] MEDS: ZOCOR 20MG PO SCH (09:13)
[2019-04-22] MEDS: Ecotrin 325 MG PO SCH ×2 (09:13→21:25)
[2019-04-22] MEDS: FISH OIL 1,000 MG CAPSULE PO SCH (09:13)
[2019-04-22] MEDS: Colace 100 MG PO SCH (09:13)
[2019-04-22] MEDS: SYNTHROID 50 MCG PO SCH (09:13)
[2019-04-22] MEDS: Maxzide-25MG Tablet PO SCH (09:13)
[2019-04-22] MEDS: celeBREX 100 MG PO SCH ×2 (09:14→21:24)
[2019-04-22] MEDS: LASIX 20 MG PO SCH (09:14)
[2019-04-22] MEDS: THERAGRAN MULTIVITAMIN PO SCH (09:14)
[2019-04-22] MEDS: Lopressor 50 MG PO SCH ×2 (09:14→21:25)
[2019-04-22] MEDS: Protonix 40MG Tablet PO SCH (09:14)
[2019-04-22] MEDS: Klor Con 10 MEQ PO SCH ×2 (09:14→21:25)
[2019-04-22] MEDS: Lotrisone Cream TP PRN (19:59)
[2019-04-22] MEDS: DESYREL 50 MG PO SCH (21:25)
[2019-04-22] MEDS: ceLEXa 20 MG PO SCH (21:25)
[2019-04-22] MEDS: Glucophage 500 MG PO SCH (21:25)
[2019-04-22] MEDS: xanAX 0.5 MG PO SCH (21:25)
[2019-04-23] MEDS: Norco 10/325 MG Tablet PO PRN ×2 (08:19→21:35)
[2019-04-23] MEDS: Ecotrin 325 MG PO SCH ×2 (10:07→21:37)
[2019-04-23] MEDS: Calcium 500MG W/Vit D Tablet PO SCH ×2 (10:07→21:38)
[2019-04-23] MEDS: celeBREX 100 MG PO SCH ×2 (10:07→21:37)
[2019-04-23] MEDS: Colace 100 MG PO SCH (10:07)
[2019-04-23] MEDS: FISH OIL 1,000 MG CAPSULE PO SCH (10:07)
[2019-04-23] MEDS: LASIX 20 MG PO SCH (10:08)
[2019-04-23] MEDS: Lopressor 50 MG PO SCH ×2 (10:08→21:53)
[2019-04-23] MEDS: Klor Con 10 MEQ PO SCH ×2 (10:08→21:37)
[2019-04-23] MEDS: Protonix 40MG Tablet PO SCH (10:09)
[2019-04-23] MEDS: SYNTHROID 50 MCG PO SCH (10:09)
[2019-04-23] MEDS: Maxzide-25MG Tablet PO SCH (10:09)
[2019-04-23] MEDS: THERAGRAN MULTIVITAMIN PO SCH (10:09)
[2019-04-23] MEDS: ZOCOR 20MG PO SCH (10:25)
--- NOTE | 2019-04-23 12:03 | PCM.NOTE ---
Date and Time: 04/23/19 1201 Subjective Assessment: doing ok - Review of Systems Constitutional: No Fever, No Chills Eyes: No Symptoms Ears, Nose, & Throat: No Symptoms Respiratory: No Cough, No Short Of Breath Cardiac: No Chest Pain, No Edema, No Syncope Abdominal/Gastrointestinal: No Abdominal Pain, No Nausea, No Vomiting, No Diarrhea Genitourinary Symptoms: No Dysuria Musculoskeletal: No Back Pain, No Neck Pain Skin: No Rash Neurological: No Dizziness, No Focal Weakness, No Sensory Changes Psychological: No Symptoms Endocrine: No Symptoms Hematologic/Lymphatic: No Symptoms Immunological/Allergic: No Symptoms Objective Exam General Appearance: no apparent distress, alert Neurologic Exam: alert, oriented x 3, cooperative, normal mood/affect, nml cerebellar function, sensation nml, No motor deficits Skin Exam: normal color, warm, dry Wound Assessment: Skin/Wound Assessment Wound/Incision Assessment Start: 04/21/19 08: 23 Text: Status: Active Freq: Q6H Protocol: Document 04/23/19 08:00 BE (Rec: 04/23/19 08:46 BE [id number]) Wound/Incision Assessment Other Wound Assessment Shift Assessment Wound Type reddened Drainage Amount None Surrounding Tissue Bright Red Comment Lotrisome cream applied prn to szuan area. Right Knee Wound Assessment Shift Assessment Wound Type Incision Wound Stage Non Pressure Wound Dressing Status Dry & Intact Drainage Amount None Drainage Odor None/Absent Comment Dressing CDI. Area slightly swollen inner aspect of knee with very light bruising noted . ice applied and pain pill given at this time Eye Exam: PERRL, EOMI, eyes nml inspection Ears, Nose, Throat Exam: normal ENT inspection, pharynx normal, moist mucous membranes Neck Exam: normal inspection, non-tender, supple, full range of motion Respiratory Exam: normal breath sounds, lungs clear, No respiratory distress Cardiovascular Exam: regular rate/rhythm, normal heart sounds Gastrointestinal/Abdomen Exam: soft, No tenderness, No mass Extremity Exam: normal inspection, normal range of motion Back Exam: normal inspection, normal range of motion, No CVA tenderness, No vertebral tenderness Pelvic Exam: deferred Rectal Exam: deferred OBJECTIVE DATA Vital Signs: Vital Signs - 24 hr Temp Pulse Resp BP Pulse Ox 04/23/19 07:21 97.8 F 79 18 142/60 96 04/22/19 20:00 98.2 F 78 16 186/70 90 L Pain Assessment - Last Documented Pain Intensity 3 Pain Scale Used 0-10 Pain Scale Intake and Output: Intake & Output 04/21/19 04/22/19 04/23/19 04/24/19 11:59 11:59 11:59 11:59 Intake Total 1300 840 Output Total 400 Balance 900 840 Weight 95.3 kg Assessment/Plan (1) History of prosthetic unicompartmental arthroplasty of right knee Current Visit: Yes Status: Acute Code(s): Z96.651 - PRESENCE OF RIGHT ARTIFICIAL KNEE JOINT
[2019-04-23] MEDS ORDERED: ZOFRAN ODT 4 MG PO PRN (12:04)
[2019-04-23] MEDS: ceLEXa 20 MG PO SCH (21:36)
[2019-04-23] MEDS: xanAX 0.5 MG PO SCH (21:37)
[2019-04-23] MEDS: DESYREL 50 MG PO SCH (21:37)
[2019-04-23] MEDS: Glucophage 500 MG PO SCH (21:37)
[2019-04-23] MEDS: Lotrisone Cream TP PRN (21:39)
--- NOTE | 2019-04-24 08:35 | PCM.NOTE ---
Date and Time: 04/24/19 0835 Subjective Assessment: doing ok - Review of Systems Constitutional: No Fever, No Chills Eyes: No Symptoms Ears, Nose, & Throat: No Symptoms Respiratory: No Cough, No Short Of Breath Cardiac: No Chest Pain, No Edema, No Syncope Abdominal/Gastrointestinal: No Abdominal Pain, No Nausea, No Vomiting, No Diarrhea Genitourinary Symptoms: No Dysuria Musculoskeletal: No Back Pain, No Neck Pain Skin: No Rash Neurological: No Dizziness, No Focal Weakness, No Sensory Changes Psychological: No Symptoms Endocrine: No Symptoms Hematologic/Lymphatic: No Symptoms Immunological/Allergic: No Symptoms Objective Exam General Appearance: no apparent distress, alert Neurologic Exam: alert, oriented x 3, cooperative, normal mood/affect, nml cerebellar function, sensation nml, No motor deficits Skin Exam: normal color, warm, dry Wound Assessment: Skin/Wound Assessment Wound/Incision Assessment Start: 04/21/19 08: 23 Text: Status: Active Freq: Q6H Protocol: Document 04/24/19 02:00 LB (Rec: 04/24/19 04:31 LB [id number]) Wound/Incision Assessment Other Wound Assessment Shift Assessment Wound Type reddened Drainage Amount None Surrounding Tissue Bright Red Comment Lotrisome cream applied to suzan area and abd folds prn Right Knee Wound Assessment Shift Assessment Wound Type Incision Wound Stage Non Pressure Wound Dressing Status Dry & Intact Drainage Amount None Drainage Odor None/Absent Comment Dressing CDI. Wound Photo Photo Taken No Eye Exam: PERRL, EOMI, eyes nml inspection Ears, Nose, Throat Exam: normal ENT inspection, pharynx normal, moist mucous membranes Neck Exam: normal inspection, non-tender, supple, full range of motion Respiratory Exam: normal breath sounds, lungs clear, No respiratory distress Cardiovascular Exam: regular rate/rhythm, normal heart sounds Gastrointestinal/Abdomen Exam: soft, No tenderness, No mass Extremity Exam: normal inspection, normal range of motion Back Exam: normal inspection, normal range of motion, No CVA tenderness, No vertebral tenderness Pelvic Exam: deferred Rectal Exam: deferred OBJECTIVE DATA Vital Signs: Vital Signs - 24 hr Temp Pulse Resp BP Pulse Ox 04/24/19 07:56 98.9 F 71 16 130/60 95 04/23/19 20:10 98.3 F 73 18 150/63 94 L Pain Assessment - Last Documented Pain Intensity 2 Pain Scale Used [facility] Intake and Output: Intake & Output 07/07/19 07/08/19 07/09/19 07/10/19 11:59 11:59 11:59 11:59 Intake Total 1300 840 620 Output Total 400 Balance 900 840 620 Weight 95.3 kg Assessment/Plan (1) History of prosthetic unicompartmental arthroplasty of right knee Current Visit: Yes Status: Acute Code(s): Z96.651 - PRESENCE OF RIGHT ARTIFICIAL KNEE JOINT
[2019-04-24] MEDS: Calcium 500MG W/Vit D Tablet PO SCH ×2 (09:53→21:39)
[2019-04-24] MEDS: celeBREX 100 MG PO SCH ×2 (09:53→21:39)
[2019-04-24] MEDS: Ecotrin 325 MG PO SCH ×2 (09:54→21:40)
[2019-04-24] MEDS: Klor Con 10 MEQ PO SCH ×2 (09:54→21:40)
[2019-04-24] MEDS: Colace 100 MG PO SCH (09:54)
[2019-04-24] MEDS: FISH OIL 1,000 MG CAPSULE PO SCH (09:54)
[2019-04-24] MEDS: LASIX 20 MG PO SCH (09:55)
[2019-04-24] MEDS: THERAGRAN MULTIVITAMIN PO SCH (09:55)
[2019-04-24] MEDS: Maxzide-25MG Tablet PO SCH (09:55)
[2019-04-24] MEDS: Lopressor 50 MG PO SCH ×2 (09:55→21:40)
[2019-04-24] MEDS: SYNTHROID 50 MCG PO SCH (09:55)
[2019-04-24] MEDS: ZOCOR 20MG PO SCH (09:55)
[2019-04-24] MEDS: Protonix 40MG Tablet PO SCH (09:58)
[2019-04-24] MEDS: ceLEXa 20 MG PO SCH (21:39)
[2019-04-24] MEDS: xanAX 0.5 MG PO SCH (21:40)
[2019-04-24] MEDS: DESYREL 50 MG PO SCH (21:40)
[2019-04-24] MEDS: Glucophage 500 MG PO SCH (21:40)
[2019-04-25] MEDS: Norco 10/325 MG Tablet PO PRN ×3 (00:17→18:26)
[2019-04-25] MEDS: ZOCOR 20MG PO SCH (08:55)
[2019-04-25] MEDS: Ecotrin 325 MG PO SCH ×2 (08:55→21:22)
[2019-04-25] MEDS: THERAGRAN MULTIVITAMIN PO SCH (08:55)
[2019-04-25] MEDS: Maxzide-25MG Tablet PO SCH (08:55)
[2019-04-25] MEDS: Lopressor 50 MG PO SCH ×2 (08:55→21:23)
[2019-04-25] MEDS: SYNTHROID 50 MCG PO SCH (08:55)
[2019-04-25] MEDS: Calcium 500MG W/Vit D Tablet PO SCH ×2 (08:55→21:20)
[2019-04-25] MEDS: Colace 100 MG PO SCH (08:55)
[2019-04-25] MEDS: celeBREX 100 MG PO SCH ×2 (08:55→21:20)
[2019-04-25] MEDS: Protonix 40MG Tablet PO SCH (08:56)
[2019-04-25] MEDS: FISH OIL 1,000 MG CAPSULE PO SCH (08:56)
[2019-04-25] MEDS: LASIX 20 MG PO SCH (08:56)
[2019-04-25] MEDS: Klor Con 10 MEQ PO SCH ×2 (08:56→21:22)
--- NOTE | 2019-04-25 12:55 | PCM.NOTE ---
Date and Time: 04/25/19 1254 Subjective Assessment: doing ok - Review of Systems Constitutional: No Fever, No Chills Eyes: No Symptoms Ears, Nose, & Throat: No Symptoms Respiratory: No Cough, No Short Of Breath Cardiac: No Chest Pain, No Edema, No Syncope Abdominal/Gastrointestinal: No Abdominal Pain, No Nausea, No Vomiting, No Diarrhea Genitourinary Symptoms: No Dysuria Musculoskeletal: No Back Pain, No Neck Pain Skin: No Rash Neurological: No Dizziness, No Focal Weakness, No Sensory Changes Psychological: No Symptoms Endocrine: No Symptoms Hematologic/Lymphatic: No Symptoms Immunological/Allergic: No Symptoms Objective Exam General Appearance: no apparent distress, alert Neurologic Exam: alert, oriented x 3, cooperative, normal mood/affect, nml cerebellar function, sensation nml, No motor deficits Skin Exam: normal color, warm, dry Wound Assessment: Skin/Wound Assessment Wound/Incision Assessment Start: 04/21/19 08: 23 Text: Status: Active Freq: Q6H Protocol: Document 04/25/19 08:00 BA (Rec: 04/25/19 09:40 BA [id number]) Wound/Incision Assessment Other Wound Assessment Shift Assessment Wound Type reddened Wound Stage Non Pressure Wound Drainage Amount None Surrounding Tissue Bright [place] Comment Lotrisone cream applied to suzan area and abd folds prn Right Knee Wound Assessment Shift Assessment Wound Type Incision Wound Stage Non Pressure Wound Dressing Status Dry & Intact Drainage Amount None Surrounding Tissue [place] Comment aquacel dressing remains in place. not to be changed until follow up appointment with surgeon. Wound Photo Photo Taken No Eye Exam: PERRL, EOMI, eyes nml inspection Ears, Nose, Throat Exam: normal ENT inspection, pharynx normal, moist mucous membranes Neck Exam: normal inspection, non-tender, supple, full range of motion Respiratory Exam: normal breath sounds, lungs clear, No respiratory distress Cardiovascular Exam: regular rate/rhythm, normal heart sounds Gastrointestinal/Abdomen Exam: soft, No tenderness, No mass Extremity Exam: normal inspection, normal range of motion Back Exam: normal inspection, normal range of motion, No CVA tenderness, No vertebral tenderness Pelvic Exam: deferred Rectal Exam: deferred OBJECTIVE DATA Vital Signs: Vital Signs - 24 hr Temp Pulse Resp BP Pulse Ox 04/25/19 07:47 98.2 F 80 16 170/70 96 04/24/19 20:10 98.2 F 79 20 137/62 95 Pain Assessment - Last Documented Pain Intensity 0 Pain Scale Used 0-10 Pain Scale Intake and Output: Intake & Output 04/23/19 04/24/19 04/25/19 04/26/19 11:59 11:59 11:59 11:59 Intake Total 840 980 700 Balance 840 980 700 Weight 95.3 kg Assessment/Plan (1) History of prosthetic unicompartmental arthroplasty of right knee Current Visit: Yes Status: Acute Code(s): Z96.651 - PRESENCE OF RIGHT ARTIFICIAL KNEE JOINT
[2019-04-25] MEDS: DESYREL 50 MG PO SCH (21:21)
[2019-04-25] MEDS: ceLEXa 20 MG PO SCH (21:21)
[2019-04-25] MEDS: Glucophage 500 MG PO SCH (21:22)
[2019-04-25] MEDS: xanAX 0.5 MG PO SCH (21:23)
[2019-04-26] MEDS ORDERED: NYSTOP 30 GM CREAM TOP PRN (09:27)
[2019-04-26 09:54] LABS: BASOPHIL % 0.7 % (0.0-0.4); Basophil (Absolute #) 0.09 (0-0.4); Eosinophil % 4.1 % (0.00-5.0); Eosinophil (Absolute #) 0.56 (0-0.5); Granulocyte Absolute (ANC) 9.65 (1.4-6.9); Granulocytes % 71.3 % (36.0-66.0); Hematocrit 30.7 % (35-47); Hemoglobin 10.1 gm/dl (12.0-16.0); Lymphocyte (Absolute #) 2.38 (1.0-4.6); Lymphocytes % 17.6 % (24.0-44.0); Mean Cell Volume 98.1 fl (78-100); Mean Corpuscular Hgb Concent. 32.9 g/dl (32-36); Mean Platelet Volume 8.5 fl (6-9.5); Monocyte (Absolute #) 0.85 (0.0-1.3); Monocytes % 6.3 % (0.0-12.0); Platelet Count 426 K/mm3 (150-450); Red Blood Count 3.13 M/mm3 (4.1-5.4); Red Cell Distribution Width 13.1 % (11.5-14.0); White Blood Count 13.5 K/mm3 (4.0-10.5)
[2019-04-26] MEDS: Colace 100 MG PO SCH (10:02)
[2019-04-26] MEDS: ZOCOR 20MG PO SCH (10:02)
[2019-04-26] MEDS: Maxzide-25MG Tablet PO SCH (10:03)
[2019-04-26] MEDS: celeBREX 100 MG PO SCH ×2 (10:03→21:56)
[2019-04-26] MEDS: Klor Con 10 MEQ PO SCH ×3 (10:03→21:58)
[2019-04-26] MEDS: Calcium 500MG W/Vit D Tablet PO SCH ×2 (10:03→21:56)
[2019-04-26] MEDS: Lopressor 50 MG PO SCH ×2 (10:03→21:58)
[2019-04-26] MEDS: THERAGRAN MULTIVITAMIN PO SCH (10:03)
[2019-04-26] MEDS: LASIX 20 MG PO SCH (10:04)
[2019-04-26] MEDS: Protonix 40MG Tablet PO SCH (10:04)
[2019-04-26] MEDS: SYNTHROID 50 MCG PO SCH (10:04)
[2019-04-26] MEDS: FISH OIL 1,000 MG CAPSULE PO SCH (10:04)
[2019-04-26] MEDS: Ecotrin 325 MG PO SCH ×2 (10:04→21:57)
[2019-04-26 10:10] LABS: Mean Corpuscular Hemoglobin 32.2 pg (26-32)
[2019-04-26 10:13] LABS: ANION GAP 14.9 MEQ/L (5-15); BLOOD UREA NITROGEN 10 mg/dL (7-17); CHLORIDE 84 mmol/L (98-107); Calcium 9.7 mg/dL (8.4-10.2); Carbon Dioxide 33 mmol/L (22-30); Glucose 188 mg/dL (74-106); Potassium 3.3 mmol/L (3.5-5.1); SODIUM 129 mmol/L (137-145)
[2019-04-26 10:15] LABS: Basophil 1 % (0.0-1.0); Eosinophil 2 % (0.00-3.0); Lymphocytes 27 % (24-44); Monocyte 1 % (0.0-12.0); Neutrophils 69 % (36.0-66.0); Platelet Estimate NORMAL (NORMAL); Total Cells Counted 100
[2019-04-26] MEDS: Norco 10/325 MG Tablet PO PRN (13:54)
[2019-04-26] MEDS: ceLEXa 20 MG PO SCH (21:56)
[2019-04-26] MEDS: Glucophage 500 MG PO SCH (21:57)
[2019-04-26] MEDS: DESYREL 50 MG PO SCH (21:57)
[2019-04-26] MEDS: xanAX 0.5 MG PO SCH (21:58)
[2019-04-27] MEDS: Ecotrin 325 MG PO SCH ×2 (10:17→22:56)
[2019-04-27] MEDS: FISH OIL 1,000 MG CAPSULE PO SCH (10:17)
[2019-04-27] MEDS: Klor Con 10 MEQ PO SCH ×4 (10:17→22:58)
[2019-04-27] MEDS: SYNTHROID 50 MCG PO SCH (10:17)
[2019-04-27] MEDS: ZOCOR 20MG PO SCH (10:17)
[2019-04-27] MEDS: Calcium 500MG W/Vit D Tablet PO SCH ×2 (10:18→22:55)
[2019-04-27] MEDS: Norco 10/325 MG Tablet PO PRN ×2 (10:18→23:06)
[2019-04-27] MEDS: THERAGRAN MULTIVITAMIN PO SCH (10:18)
[2019-04-27] MEDS: Lopressor 50 MG PO SCH ×2 (10:18→22:58)
[2019-04-27] MEDS: Maxzide-25MG Tablet PO SCH (10:18)
[2019-04-27] MEDS: celeBREX 100 MG PO SCH ×2 (10:18→22:55)
[2019-04-27] MEDS: LASIX 20 MG PO SCH ×2 (10:18→14:50)
[2019-04-27] MEDS: Colace 100 MG PO SCH (10:18)
[2019-04-27] MEDS: Protonix 40MG Tablet PO SCH (10:18)
--- NOTE | 2019-04-27 13:21 | PCM.NOTE ---
Date and Time: 04/27/19 1316 Subjective Assessment: Asked to see patient for redness behind her right knee which is the same knee she had her knee replacement done with Dr. Jade and also swelling in her legs. Patient also reports nursing told her that her bottom was red and she reports her bottom is sore when she is lying in bed. - Review of Systems Constitutional: No Symptoms Eyes: No Symptoms Ears, Nose, & Throat: No Symptoms Respiratory: No Symptoms Cardiac: No Symptoms Abdominal/Gastrointestinal: No Symptoms Genitourinary Symptoms: No Symptoms Musculoskeletal: Other (leg swelling, redness behind right knee; ) Skin: Other (skin around bottom sore) Objective Exam General Appearance: no apparent distress, obese Neurologic Exam: alert, cooperative, normal mood/affect Skin Exam: normal color, warm, other (buttocks with erythema that blanches, no open sores; right knee with erythema posteriorly, +2 edema of both legs bilat) Wound Assessment: Skin/Wound Assessment Wound/Incision Assessment Start: 04/21/19 08: 23 Text: Status: Active Freq: Q6H Protocol: Document 04/27/19 08:00 ZAMZAM (Rec: 04/27/19 09:40 ZAMZAM [id number]) Wound/Incision Assessment Right Knee Wound Assessment Shift Assessment Wound Type Incision Wound Stage Non Pressure Wound Dressing Status Dry & Intact Drainage Amount None Surrounding Tissue [place] Edematous Primary Dressing AQUACEL DRESSING Comment LEG IS WARM TO THE TOUCH AND RED BEHIND RIGHT KNEE Respiratory Exam: normal breath sounds, lungs clear, No crackles/rales, No rhonchi, No wheezing Cardiovascular Exam: regular rate/rhythm, normal heart sounds, No friction rub, No gallop, No tachycardia Gastrointestinal/Abdomen Exam: soft, normal bowel sounds, No tenderness, No distention, No mass OBJECTIVE DATA Vital Signs: Vital Signs - 24 hr Temp Pulse Resp BP Pulse Ox 04/27/19 07:52 98.0 F 73 18 118/52 93 L 04/26/19 20:00 97.9 F 70 20 148/63 96 Pain Assessment - Last Documented Pain Intensity 5 Pain Scale Used 0-10 Pain Scale Intake and Output: Intake & Output 04/25/19 04/26/19 04/27/19 04/28/19 06:59 06:59 06:59 06:59 Intake Total 1060 400 480 Balance 1060 400 480 Weight 96.2 kg Radiology Exams: Radiology Procedures Category Date Time Status VENOUS UNILAT/LIMITED EXTREMIT [US] Stat Exams 04/27/19 Ordered Multi-Disciplinary Progress Notes: Multi-Disciplinary Progress Notes 04/27/19 10:25 Physical Therapy Note by Denise Horne PATIENT CONTINUES TO PROGRESS WITH THERAPY S/P RIGHT TOTAL KNEE REPLACEMENT. AMBULATING INDEP WITH ROLLING WALKER. UNABLE TO PROGRESS TO CANE DUE TO PAIN LEFT KNEE WHICH PATIENT REPORTS SHE WILL HAVE REPLACED AFTER RIGHT KNEE REHAB COMPLETE. ACTIVE ROM AFTER EXERCISES ON THIS DATE IN [place]: 0/0/105 DEGREES ASSISTED ROM: 0/0/107 DEGREES. ALSO INCREASED TKR EXERCISES USING 1# WEIGHT X 12 REPS FOR ALL EXERCISES. HAS F/U WITH ORTHOPEDIC SURGEON 05/01/19 @ 11:15 A.M Initialized on 04/27/19 10:25 - END OF NOTE Assessment/Plan (1) Right leg swelling Current Visit: Yes Status: Acute Assessment & Plan: Check doppler of right leg to rule out DVT. Dr. Jade was also notified. WBC was mildly elevate when checked by Dr. Pierre (her PCP) yesterday. She has been afebrile. Code(s): M79.89 - OTHER SPECIFIED SOFT TISSUE DISORDERS (2) Bilateral edema of lower extremity Current Visit: Yes Status: Acute Assessment & Plan: Increase lasix to bid; daily weights; continue accurate ins and outs. Code(s): R60.0 - LOCALIZED EDEMA (3) History of prosthetic unicompartmental arthroplasty of right knee Current Visit: Yes Status: Acute Assessment & Plan: Has appointment next week with orthopedic surgeon for follow up. Code(s): Z96.651 - PRESENCE OF RIGHT ARTIFICIAL KNEE JOINT
[2019-04-27] MEDS: ceLEXa 20 MG PO SCH (22:55)
[2019-04-27] MEDS: Glucophage 500 MG PO SCH (22:56)
[2019-04-27] MEDS: DESYREL 50 MG PO SCH (22:56)
[2019-04-27] MEDS: xanAX 0.5 MG PO SCH (22:59)
--- NOTE | 2019-04-27 23:59 | XRAY ---
Indication: Edema. Status post right knee replacement. Two-dimensional sonogram and color Doppler imaging of the major venous vessels of the right leg was performed. Comparison: None No thrombus seen in the examined deep venous vessels of the right leg including greater saphenous vein. Veins demonstrate normal compressibility. Venous waveforms are normal with and without augmentation. Impression: Right leg negative for DVT. Comment: Preliminary report was given.
[2019-04-28] MEDS: FISH OIL 1,000 MG CAPSULE PO SCH (09:31)
[2019-04-28] MEDS: ZOCOR 20MG PO SCH (09:31)
[2019-04-28] MEDS: Klor Con 10 MEQ PO SCH ×4 (09:31→21:55)
[2019-04-28] MEDS: THERAGRAN MULTIVITAMIN PO SCH (09:32)
[2019-04-28] MEDS: celeBREX 100 MG PO SCH ×2 (09:32→21:53)
[2019-04-28] MEDS: LASIX 20 MG PO SCH ×2 (09:32)
[2019-04-28] MEDS: Colace 100 MG PO SCH (09:32)
[2019-04-28] MEDS: Maxzide-25MG Tablet PO SCH (09:32)
[2019-04-28] MEDS: Lopressor 50 MG PO SCH ×2 (09:32→21:51)
[2019-04-28] MEDS: Calcium 500MG W/Vit D Tablet PO SCH ×2 (09:32→21:53)
[2019-04-28] MEDS: Protonix 40MG Tablet PO SCH (09:32)
[2019-04-28] MEDS: Ecotrin 325 MG PO SCH ×2 (09:33→21:51)
[2019-04-28] MEDS: SYNTHROID 50 MCG PO SCH (09:33)
[2019-04-28] MEDS ORDERED: CEPACOL SORE THROAT LOZENGE PO PRN (10:42)
--- NOTE | 2019-04-28 12:37 | PCM.NOTE ---
Date and Time: 04/28/19 1235 Subjective Assessment: Patient reports her uvula feels swollen and her throat hurts some. - Review of Systems Constitutional: No Symptoms Additional Findings: Right leg pain, swelling bilat Objective Exam General Appearance: no apparent distress, obese Neurologic Exam: alert Wound Assessment: Skin/Wound Assessment Wound/Incision Assessment Start: 04/21/19 08: 23 Text: Status: Active Freq: Q6H Protocol: Document 04/28/19 08:00 BE (Rec: 04/28/19 08:10 BE [id number]) Wound/Incision Assessment Right Knee Wound Assessment Shift Assessment Wound Type Incision Wound Stage Non Pressure Wound Dressing Status Dry & Intact Drainage Amount None Surrounding Tissue [place] Edematous Primary Dressing AQUACEL DRESSING Comment Right knee and surrounding skin erythema. Elevated on pillow at this time. Comments: 04/28/19 12:36 uvula with mild swelling and mild erythema, no exudate, no white patches OBJECTIVE DATA Vital Signs: Vital Signs - 24 hr Temp Pulse Resp BP Pulse Ox 04/28/19 07:34 98.4 F 74 18 174/72 94 L 04/27/19 19:58 97.8 F 73 17 155/67 96 Pain Assessment - Last Documented Pain Intensity 0 Pain Scale Used 0-10 Pain Scale Intake and Output: Intake & Output 04/26/19 04/27/19 04/28/19 04/29/19 06:59 06:59 06:59 06:59 Intake Total 042 432 4160 Output Total 1850 1300 Balance 400 480 -490 -1300 Weight 96.2 kg 96 kg Radiology Exams: Radiology Procedures Category Date Time Status VENOUS UNILAT/LIMITED EXTREMIT [US] Stat Exams 04/27/19 14:49 Completed Assessment/Plan (1) Right leg swelling Current Visit: Yes Status: Acute Assessment & Plan: US was neg for DVT yesterday; Dr. Jade was notified and called back and agreed with current treatment. Code(s): M79.89 - OTHER SPECIFIED SOFT TISSUE DISORDERS (2) Bilateral edema of lower extremity Current Visit: Yes Status: Acute Assessment & Plan: Lasix increased to bid yesterday. Code(s): R60.0 - LOCALIZED EDEMA (3) History of prosthetic unicompartmental arthroplasty of right knee Current Visit: Yes Status: Acute Assessment & Plan: Continue follow up with ortho Code(s): Z96.651 - PRESENCE OF RIGHT ARTIFICIAL KNEE JOINT (4) Acute pharyngitis Current Visit: Yes Status: Acute Assessment & Plan: cough drops as needed. Code(s): J02.9 - ACUTE PHARYNGITIS, UNSPECIFIED
[2019-04-28] MEDS: Norco 10/325 MG Tablet PO PRN ×2 (15:40→21:51)
[2019-04-28] MEDS: DESYREL 50 MG PO SCH (21:52)
[2019-04-28] MEDS: ceLEXa 20 MG PO SCH (21:53)
[2019-04-28] MEDS: xanAX 0.5 MG PO SCH (21:53)
[2019-04-28] MEDS: Glucophage 500 MG PO SCH (21:54)
[2019-04-29] MEDS: celeBREX 100 MG PO SCH ×2 (09:27→21:57)
[2019-04-29] MEDS: Maxzide-25MG Tablet PO SCH (09:27)
[2019-04-29] MEDS: FISH OIL 1,000 MG CAPSULE PO SCH (09:28)
[2019-04-29] MEDS: Norco 10/325 MG Tablet PO PRN ×2 (09:28→15:20)
[2019-04-29] MEDS: Colace 100 MG PO SCH (09:29)
[2019-04-29] MEDS: LASIX 20 MG PO SCH ×2 (09:29→16:33)
[2019-04-29] MEDS: Protonix 40MG Tablet PO SCH (09:29)
[2019-04-29] MEDS: SYNTHROID 50 MCG PO SCH (09:29)
[2019-04-29] MEDS: Ecotrin 325 MG PO SCH ×2 (09:29→21:58)
[2019-04-29] MEDS: Calcium 500MG W/Vit D Tablet PO SCH ×2 (09:29→21:57)
[2019-04-29] MEDS: Lopressor 50 MG PO SCH ×2 (09:29→22:00)
[2019-04-29] MEDS: THERAGRAN MULTIVITAMIN PO SCH (09:29)
[2019-04-29] MEDS: ZOCOR 20MG PO SCH (09:30)
[2019-04-29] MEDS: Klor Con 10 MEQ PO SCH ×4 (10:29→21:59)
--- NOTE | 2019-04-29 12:12 | PCM.NOTE ---
Date and Time: 04/29/19 1211 Subjective Assessment: doing ok - Review of Systems Constitutional: No Fever, No Chills Eyes: No Symptoms Ears, Nose, & Throat: No Symptoms Respiratory: No Cough, No Short Of Breath Cardiac: No Chest Pain, No Edema, No Syncope Abdominal/Gastrointestinal: No Abdominal Pain, No Nausea, No Vomiting, No Diarrhea Genitourinary Symptoms: No Dysuria Musculoskeletal: No Back Pain, No Neck Pain Skin: No Rash Neurological: No Dizziness, No Focal Weakness, No Sensory Changes Psychological: No Symptoms Endocrine: No Symptoms Hematologic/Lymphatic: No Symptoms Immunological/Allergic: No Symptoms Objective Exam General Appearance: no apparent distress, alert Neurologic Exam: alert, oriented x 3, cooperative, normal mood/affect, nml cerebellar function, sensation nml, No motor deficits Skin Exam: normal color, warm, dry Wound Assessment: Skin/Wound Assessment Wound/Incision Assessment Start: 04/21/19 08: 23 Text: Status: Active Freq: Q6H Protocol: Document 04/29/19 08:00 BE (Rec: 04/29/19 10:38 BE [id number]) Wound/Incision Assessment Right Knee Wound Assessment Shift Assessment Wound Type Incision Wound Stage Non Pressure Wound Dressing Status Dry & Intact Drainage Amount None Surrounding Tissue [place] Edematous Primary Dressing AQUACEL DRESSING Comment Right knee and surrounding skin bruising. Ice pack given at this time. Eye Exam: PERRL, EOMI, eyes nml inspection Ears, Nose, Throat Exam: normal ENT inspection, pharynx normal, moist mucous membranes Neck Exam: normal inspection, non-tender, supple, full range of motion Respiratory Exam: normal breath sounds, lungs clear, No respiratory distress Cardiovascular Exam: regular rate/rhythm, normal heart sounds Gastrointestinal/Abdomen Exam: soft, No tenderness, No mass Extremity Exam: normal inspection, normal range of motion Back Exam: normal inspection, normal range of motion, No CVA tenderness, No vertebral tenderness Pelvic Exam: deferred Rectal Exam: deferred OBJECTIVE DATA Vital Signs: Vital Signs - 24 hr Temp Pulse Resp BP Pulse Ox 04/29/19 07:24 98.2 F 69 18 123/55 94 L 04/28/19 20:00 98.1 F 66 18 133/60 92 L Pain Assessment - Last Documented Pain Intensity 5 Pain Scale Used 0-10 Pain Scale Intake and Output: Intake & Output 04/27/19 04/28/19 04/29/19 07/16/19 11:59 11:59 11:59 11:59 Intake Total 120 1360 360 Output Total 2050 2600 Balance 120 -690 -2240 Weight 96.2 kg 96 kg 40.1 kg Lab Results: Lab Results-Last 24 Hours 04/29/19 Range/Units 06:02 Potassium 3.6 (3.5-5.1) mmol/L Radiology Exams: Radiology Procedures Category Date Time Status VENOUS UNILAT/LIMITED EXTREMIT [US] Stat Exams 04/27/19 14:49 Completed Assessment/Plan (1) History of prosthetic unicompartmental arthroplasty of right knee Current Visit: Yes Status: Acute Code(s): Z96.651 - PRESENCE OF RIGHT ARTIFICIAL KNEE JOINT
[2019-04-29] MEDS: ceLEXa 20 MG PO SCH (21:57)
[2019-04-29] MEDS: Glucophage 500 MG PO SCH (21:58)
[2019-04-29] MEDS: DESYREL 50 MG PO SCH (21:58)
[2019-04-29] MEDS: xanAX 0.5 MG PO SCH (22:00)
--- NOTE | 2019-04-30 09:18 | PCM.NOTE ---
Date and Time: 04/30/19916 Subjective Assessment: doing better - Review of Systems Constitutional: No Fever, No Chills Eyes: No Symptoms Ears, Nose, & Throat: No Symptoms Respiratory: No Cough, No Short Of Breath Cardiac: No Chest Pain, No Edema, No Syncope Abdominal/Gastrointestinal: No Abdominal Pain, No Nausea, No Vomiting, No Diarrhea Genitourinary Symptoms: No Dysuria Musculoskeletal: No Back Pain, No Neck Pain Skin: No Rash Neurological: No Dizziness, No Focal Weakness, No Sensory Changes Psychological: No Symptoms Endocrine: No Symptoms Hematologic/Lymphatic: No Symptoms Immunological/Allergic: No Symptoms Objective Exam General Appearance: no apparent distress, alert Neurologic Exam: alert, oriented x 3, cooperative, normal mood/affect, nml cerebellar function, sensation nml, No motor deficits Skin Exam: normal color, warm, dry Wound Assessment: Skin/Wound Assessment Wound/Incision Assessment Start: 04/21/19 08: 23 Text: Status: Active Freq: Q6H Protocol: Document 04/30/19 08:00 CATRAMON (Rec: 04/30/19 08:59 [facility] [id number] Wound/Incision Assessment Right Knee Wound Assessment Shift Assessment Wound Type Incision Wound Stage Non Pressure Wound Dressing Status Dry & Intact Primary Dressing AQUACEL DRESSING Comment Aquacel dressing and stocking in place, leg warm to touch and swelling noted Wound Photo Photo Taken No Eye Exam: PERRL, EOMI, eyes nml inspection Ears, Nose, Throat Exam: normal ENT inspection, pharynx normal, moist mucous membranes Neck Exam: normal inspection, non-tender, supple, full range of motion Respiratory Exam: normal breath sounds, lungs clear, No respiratory distress Cardiovascular Exam: regular rate/rhythm, normal heart sounds Gastrointestinal/Abdomen Exam: soft, No tenderness, No mass Extremity Exam: normal inspection, normal range of motion Back Exam: normal inspection, normal range of motion, No CVA tenderness, No vertebral tenderness Pelvic Exam: deferred Rectal Exam: deferred OBJECTIVE DATA Vital Signs: Vital Signs - 24 hr Temp Pulse Resp BP Pulse Ox 04/30/19 08:00 97.7 F 75 18 135/59 90 L 04/29/19 20:00 97.6 F 67 20 127/58 97 Pain Assessment - Last Documented Pain Intensity 2 Pain Scale Used 0-10 Pain Scale Intake and Output: Intake & Output 07/13/04/28/19 04/29/19 04/30/19 11:59 11:59 11:59 11:59 Intake Total 120 1360 360 960 Output Total 3922 7118 7191 Balance 120 -349 -1650 -1390 Weight 96.2 kg 96 kg 40.1 kg 90.2 kg Assessment/Plan (1) History of prosthetic unicompartmental arthroplasty of right knee Current Visit: Yes Status: Acute Assessment & Plan: Last Vital Signs Temp 97.7 F 04/30/19 08:00 Pulse 75 04/30/19 08:00 Resp 18 04/30/19 08:00 BP 135/59 04/30/19 08:00 Pulse Ox 90 L 04/30/19 08:00 Allergies bee venom protein (honey bee) Allergy (Verified 04/19/19 16:42) Penicillins Allergy (Verified 02/09/17 20:02) Sulfa (Sulfonamide Antibiotics) Allergy (Verified 04/19/19 16:42) codeine Adverse Reaction (Severe, Verified 02/09/17 20:02) morphine Adverse Reaction (Verified 02/09/17 20:02) Active Medications Alprazolam (Xanax 0.5 Mg) 0.5 mg PO HS [facility] Stop: 05/19/19 21:59 Last Admin: 04/29/19 22:00 Dose: 0.5 mg Aspirin (Ecotrin 325 Mg) 325 mg PO BID [facility] Stop: 05/20/19 09:59 Last Admin: 04/29/19 21:58 Dose: 325 mg Calcium Carbonate (Calcium 500mg W/Vit D Tablet) 1 tab PO BID [facility] Stop: 05/20/19 09:59 Last Admin: 04/29/19 21:57 Dose: 1 tab Celecoxib (Celebrex 100 Mg) 100 mg PO BID [facility] Stop: 05/19/19 21:59 Last Admin: 04/29/19 21:57 Dose: 100 mg Citalopram Hydrobromide (Celexa 20 Mg) 40 mg PO HS [facility] Stop: 05/19/19 21:59 Last Admin: 04/29/19 21:57 Dose: 40 mg Clotrimazole (Lotrisone Cream) 0 gm TP BID PRN PRN PRN Reason: EXCORIATION Stop: 05/20/19 07:47 Last Admin: 04/23/19 21:39 Dose: 1 gm Docusate Sodium (Colace 100 Mg) 100 mg PO DAILY [facility] Stop: 05/20/19 09:59 Last Admin: 04/29/19 09:29 Dose: 100 mg Fish Oil (Fish Oil 1,000 Mg Capsule) 4,000 mg PO DAILY [facility] Stop: 05/20/19 09:59 Last Admin: 04/29/19 09:28 Dose: 4,000 mg Furosemide (Lasix 20 Mg) 20 mg PO BID DIURETIC [facility] Stop: 05/29/19 09:59 Last Admin: 04/29/19 16:33 Dose: 20 mg Levothyroxine Sodium (Synthroid 50 Mcg) 50 mcg PO DAILY [facility] Stop: 05/20/19 09:59 Last Admin: 04/29/19 09:29 Dose: 50 mcg Magnesium Hydroxide (Milk Of Magnesia 30 Ml) 30 ml PO HS PRN PRN PRN Reason: CONSTIPATION Stop: 05/19/19 15:53 Metformin HCl (Glucophage 500 Mg) 500 mg PO HS [facility] Stop: 05/20/19 21:59 Last Admin: 04/29/19 21:58 Dose: 500 mg Metoprolol Tartrate (Lopressor 50 Mg) 50 mg PO BID [facility] Stop: 05/19/19 21:59 Last Admin: 04/29/19 22:00 Dose: 50 mg Multivitamins Therapeutic (Theragran Multivitamin) 1 tab PO DAILY [facility] Stop: 05/20/19 09:59 Last Admin: 04/29/19 09:29 Dose: 1 tab Nystatin (Nystop 30 Gm Cream) 1 gm TOP PRN PRN PRN Reason: REDNESS/IRRITATION Stop: 05/26/19 09:26 Ondansetron HCl (Zofran Odt 4 Mg) 4 mg PO Q6H PRN PRN PRN Reason: NAUSEA/VOMITING Stop: 05/23/19 12:03 Pantoprazole Sodium (Protonix 40mg Tablet) 40 mg PO QAM [facility] Stop: 05/20/19 09:59 Last Admin: 04/29/19 09:29 Dose: 40 mg Potassium Chloride (Klor Con 10 Meq) 10 meq PO BID [facility] Stop: 05/26/19 21:59 Last Admin: 04/29/19 21:59 Dose: 10 meq Simvastatin (Zocor 20mg) 20 mg PO DAILY [facility] Stop: 05/20/19 09:59 Last Admin: 04/29/19 09:30 Dose: 20 mg Throat Lozenges (Cepacol Sore Throat Lozenge) 15 mg PO Q2H PRN PRN Reason: PAIN Stop: 05/28/19 10:44 Trazodone HCl (Desyrel 50 Mg) 100 mg PO HS [facility] Stop: 05/19/19 21:59 Last Admin: 04/29/19 21:58 Dose: 100 mg Triamterene/HCTZ (Maxzide-25mg Tablet) 2 tab PO DAILY [facility] Stop: 05/20/19 09:59 Last Admin: 04/29/19 09:27 Dose: 2 tab Intake & Output 04/29/19 04/30/19 11:59 11:59 Intake Total 360 960 Output Total 2600 2350 Balance -2240 -1390 Weight 40.1 kg 90.2 kg Orders 05/03/19 16:30 BMP Q14D Code(s): Z96.651 - PRESENCE OF RIGHT ARTIFICIAL KNEE JOINT
[2019-04-30] MEDS: celeBREX 100 MG PO SCH ×2 (10:30→21:44)
[2019-04-30] MEDS: THERAGRAN MULTIVITAMIN PO SCH (10:30)
[2019-04-30] MEDS: Maxzide-25MG Tablet PO SCH (10:30)
[2019-04-30] MEDS: Protonix 40MG Tablet PO SCH (10:30)
[2019-04-30] MEDS: Colace 100 MG PO SCH (10:30)
[2019-04-30] MEDS: Lopressor 50 MG PO SCH ×2 (10:30→21:44)
[2019-04-30] MEDS: Klor Con 10 MEQ PO SCH ×2 (10:30→21:44)
[2019-04-30] MEDS: Calcium 500MG W/Vit D Tablet PO SCH ×2 (10:30→21:44)
[2019-04-30] MEDS: SYNTHROID 50 MCG PO SCH (10:30)
[2019-04-30] MEDS: ZOCOR 20MG PO SCH (10:30)
[2019-04-30] MEDS: FISH OIL 1,000 MG CAPSULE PO SCH (10:30)
[2019-04-30] MEDS: Ecotrin 325 MG PO SCH ×2 (10:31→21:45)
[2019-04-30] MEDS: LASIX 20 MG PO SCH ×2 (10:31→18:16)
[2019-04-30] MEDS ORDERED: PREPARATION H Ointment RC PRN (14:45)
[2019-04-30] MEDS: Norco 10/325 MG Tablet PO PRN (18:23)
[2019-04-30] MEDS: Glucophage 500 MG PO SCH (21:44)
[2019-04-30] MEDS: ceLEXa 20 MG PO SCH (21:44)
[2019-04-30] MEDS: xanAX 0.5 MG PO SCH (21:45)
[2019-04-30] MEDS: DESYREL 50 MG PO SCH (21:45)
[2019-05-01] MEDS: Norco 10/325 MG Tablet PO PRN ×2 (09:06→18:49)
[2019-05-01] MEDS: Klor Con 10 MEQ PO SCH ×2 (09:06→20:30)
[2019-05-01] MEDS: FISH OIL 1,000 MG CAPSULE PO SCH (09:06)
[2019-05-01] MEDS: Maxzide-25MG Tablet PO SCH (09:07)
[2019-05-01] MEDS: SYNTHROID 50 MCG PO SCH (09:07)
[2019-05-01] MEDS: Colace 100 MG PO SCH (09:07)
[2019-05-01] MEDS: Ecotrin 325 MG PO SCH ×2 (09:07→20:31)
[2019-05-01] MEDS: Lopressor 50 MG PO SCH ×2 (09:07→20:29)
[2019-05-01] MEDS: celeBREX 100 MG PO SCH ×2 (09:07→20:31)
[2019-05-01] MEDS: LASIX 20 MG PO SCH ×2 (09:07→18:24)
[2019-05-01] MEDS: ZOCOR 20MG PO SCH (09:07)
[2019-05-01] MEDS: Protonix 40MG Tablet PO SCH (09:07)
[2019-05-01] MEDS: THERAGRAN MULTIVITAMIN PO SCH (09:07)
[2019-05-01] MEDS: Calcium 500MG W/Vit D Tablet PO SCH ×2 (09:07→20:30)
--- NOTE | 2019-05-01 12:48 | PCM.NOTE ---
Date and Time: 05/01/19 1246 Subjective Assessment: doing ok - Review of Systems Constitutional: No Fever, No Chills Eyes: No Symptoms Ears, Nose, & Throat: No Symptoms Respiratory: No Cough, No Short Of Breath Cardiac: No Chest Pain, No Edema, No Syncope Abdominal/Gastrointestinal: No Abdominal Pain, No Nausea, No Vomiting, No Diarrhea Genitourinary Symptoms: No Dysuria Musculoskeletal: No Back Pain, No Neck Pain Skin: No Rash Neurological: No Dizziness, No Focal Weakness, No Sensory Changes Psychological: No Symptoms Endocrine: No Symptoms Hematologic/Lymphatic: No Symptoms Immunological/Allergic: No Symptoms Objective Exam General Appearance: no apparent distress, alert Neurologic Exam: alert, oriented x 3, cooperative, normal mood/affect, nml cerebellar function, sensation nml, No motor deficits Skin Exam: normal color, warm, dry Wound Assessment: Skin/Wound Assessment Wound/Incision Assessment Start: 04/21/19 08: 23 Text: Status: Active Freq: Q6H Protocol: Document 05/01/19 08:00 ZAMZAM (Rec: 05/01/19 08:34 [email or web address] [id number]) Wound/Incision Assessment Right Knee Wound Assessment Shift Assessment Wound Type Incision Wound Stage Non Pressure Wound Dressing Status Dry & Intact Primary Dressing AQUACEL DRESSING Comment REDNESS NOTED BEHIND KNEE, ICE IN PLACE Wound Photo Photo Taken No Eye Exam: PERRL, EOMI, eyes nml inspection Ears, Nose, Throat Exam: normal ENT inspection, pharynx normal, moist mucous membranes Neck Exam: normal inspection, non-tender, supple, full range of motion Respiratory Exam: normal breath sounds, lungs clear, No respiratory distress Cardiovascular Exam: regular rate/rhythm, normal heart sounds Gastrointestinal/Abdomen Exam: soft, No tenderness, No mass Extremity Exam: normal inspection, normal range of motion Back Exam: normal inspection, normal range of motion, No CVA tenderness, No vertebral tenderness Pelvic Exam: deferred Rectal Exam: deferred OBJECTIVE DATA Vital Signs: Vital Signs - 24 hr Temp Pulse Resp BP Pulse Ox 05/01/19 07:50 98.3 F 70 19 115/51 90 L 04/30/19 19:45 98.5 F 74 18 144/61 96 Pain Assessment - Last Documented Pain Intensity 6 Pain Scale Used 0-10 Pain Scale Intake and Output: Intake & Output 04/29/19 04/30/19 05/01/19 05/02/19 11:59 11:59 11:59 11:59 Intake Total 881 169 6140 Output Total 2600 2350 900 Balance -2240 -1390 320 Weight 40.1 kg 90.2 kg Assessment/Plan (1) History of prosthetic unicompartmental arthroplasty of right knee Current Visit: Yes Status: Acute Code(s): Z96.651 - PRESENCE OF RIGHT ARTIFICIAL KNEE JOINT
[2019-05-01] MEDS: DESYREL 50 MG PO SCH (20:29)
[2019-05-01] MEDS: xanAX 0.5 MG PO SCH (20:30)
[2019-05-01] MEDS: ceLEXa 20 MG PO SCH (20:30)
[2019-05-01] MEDS: Glucophage 500 MG PO SCH (20:31)
--- NOTE | 2019-05-02 09:24 | PCM.NOTE ---
Date and Time: 05/02/19923 Subjective Assessment: doing ok - Review of Systems Constitutional: No Fever, No Chills Eyes: No Symptoms Ears, Nose, & Throat: No Symptoms Respiratory: No Cough, No Short Of Breath Cardiac: No Chest Pain, No Edema, No Syncope Abdominal/Gastrointestinal: No Abdominal Pain, No Nausea, No Vomiting, No Diarrhea Genitourinary Symptoms: No Dysuria Musculoskeletal: No Back Pain, No Neck Pain Skin: No Rash Neurological: No Dizziness, No Focal Weakness, No Sensory Changes Psychological: No Symptoms Endocrine: No Symptoms Hematologic/Lymphatic: No Symptoms Immunological/Allergic: No Symptoms Objective Exam General Appearance: no apparent distress, alert Neurologic Exam: alert, oriented x 3, cooperative, normal mood/affect, nml cerebellar function, sensation nml, No motor deficits Skin Exam: normal color, warm, dry Wound Assessment: Skin/Wound Assessment Wound/Incision Assessment Start: 04/21/19 08: 23 Text: Status: Active Freq: Q6H Protocol: Document 05/02/19 02:00 (Rec: 05/02/19 05:21 [id number]) Wound/Incision Assessment Right Knee Wound Assessment Shift Assessment Wound Type Incision Wound Stage Non Pressure Wound Dressing Status Dry & Intact Drainage Amount None Drainage Odor None/Absent General Appearance Well Approximated Asymptomatic Open to air Surrounding Tissue Edematous Comment Steri strips over site. Leg elevated. Wound Photo Photo Taken No Eye Exam: PERRL, EOMI, eyes nml inspection Ears, Nose, Throat Exam: normal ENT inspection, pharynx normal, moist mucous membranes Neck Exam: normal inspection, non-tender, supple, full range of motion Respiratory Exam: normal breath sounds, lungs clear, No respiratory distress Cardiovascular Exam: regular rate/rhythm, normal heart sounds Gastrointestinal/Abdomen Exam: soft, No tenderness, No mass Extremity Exam: normal inspection, normal range of motion Back Exam: normal inspection, normal range of motion, No CVA tenderness, No vertebral tenderness Pelvic Exam: deferred Rectal Exam: deferred OBJECTIVE DATA Vital Signs: Vital Signs - 24 hr Temp Pulse Resp BP Pulse Ox 05/02/19 07:44 98 F 80 20 148/68 95 05/01/19 20:00 98.3 F 67 20 143/66 94 L Pain Assessment - Last Documented Pain Intensity 0 Pain Scale Used [facility] Intake and Output: Intake & Output 07/15/04/30/19 05/01/19 05/02/19 11:59 11:59 11:59 11:59 Intake Total 248 112 8738 580 Output Total 2600 2350 900 0 Balance -2240 -1390 320 580 Weight 40.1 kg 90.2 kg 93 kg Multi-Disciplinary Progress Notes: Multi-Disciplinary Progress Notes 05/01/19 16:39 Physical Therapy Note by Cynthia Palomino PT. HAD F/U W/ DR. VAUGHN THIS DATE AND WAS GONE ALL DAY AND NOT AVAILABLE FOR P.T. WILL CONT. TOMORROW. CYNTHIA PALOMINO PT Initialized on 05/01/19 16:39 - END OF NOTE Assessment/Plan (1) History of prosthetic unicompartmental arthroplasty of right knee Current Visit: Yes Status: Acute Assessment & Plan: continue present management Code(s): Z96.651 - PRESENCE OF RIGHT ARTIFICIAL KNEE JOINT
[2019-05-02] MEDS: Maxzide-25MG Tablet PO SCH (10:57)
[2019-05-02] MEDS: THERAGRAN MULTIVITAMIN PO SCH (10:57)
[2019-05-02] MEDS: SYNTHROID 50 MCG PO SCH (10:57)
[2019-05-02] MEDS: Ecotrin 325 MG PO SCH ×2 (10:57→22:06)
[2019-05-02] MEDS: Calcium 500MG W/Vit D Tablet PO SCH ×2 (10:57→22:06)
[2019-05-02] MEDS: FISH OIL 1,000 MG CAPSULE PO SCH (10:57)
[2019-05-02] MEDS: Protonix 40MG Tablet PO SCH (10:57)
[2019-05-02] MEDS: ZOCOR 20MG PO SCH (10:58)
[2019-05-02] MEDS: Lopressor 50 MG PO SCH ×2 (10:58→22:07)
[2019-05-02] MEDS: Norco 10/325 MG Tablet PO PRN ×2 (10:58→22:05)
[2019-05-02] MEDS: Colace 100 MG PO SCH (10:58)
[2019-05-02] MEDS: LASIX 20 MG PO SCH ×2 (10:58→16:48)
[2019-05-02] MEDS: celeBREX 100 MG PO SCH ×2 (10:58→22:06)
[2019-05-02] MEDS: Klor Con 10 MEQ PO SCH ×2 (10:58→22:07)
[2019-05-02] MEDS ORDERED: Aplisol ID ONE (17:37)
[2019-05-02] MEDS: ceLEXa 20 MG PO SCH (22:06)
[2019-05-02] MEDS: xanAX 0.5 MG PO SCH (22:07)
[2019-05-02] MEDS: Glucophage 500 MG PO SCH (22:07)
[2019-05-02] MEDS: DESYREL 50 MG PO SCH (22:07)
[2019-05-03] MEDS: Ecotrin 325 MG PO SCH ×2 (09:46→21:28)
[2019-05-03] MEDS: celeBREX 100 MG PO SCH ×2 (09:46→21:29)
[2019-05-03] MEDS: Calcium 500MG W/Vit D Tablet PO SCH ×2 (09:46→21:29)
[2019-05-03] MEDS: FISH OIL 1,000 MG CAPSULE PO SCH (09:46)
[2019-05-03] MEDS: Colace 100 MG PO SCH (09:46)
[2019-05-03] MEDS: Maxzide-25MG Tablet PO SCH (09:47)
[2019-05-03] MEDS: LASIX 20 MG PO SCH ×2 (09:47→16:28)
[2019-05-03] MEDS: Lopressor 50 MG PO SCH ×2 (09:47→21:29)
[2019-05-03] MEDS: Klor Con 10 MEQ PO SCH ×2 (09:47→21:29)
[2019-05-03] MEDS: Protonix 40MG Tablet PO SCH (09:48)
[2019-05-03] MEDS: SYNTHROID 50 MCG PO SCH (09:48)
[2019-05-03] MEDS: THERAGRAN MULTIVITAMIN PO SCH (09:48)
[2019-05-03] MEDS: ZOCOR 20MG PO SCH (09:48)
--- NOTE | 2019-05-03 12:35 | PCM.NOTE ---
Date and Time: 05/03/19 1235 Subjective Assessment: doing better - Review of Systems Constitutional: No Fever, No Chills Eyes: No Symptoms Ears, Nose, & Throat: No Symptoms Respiratory: No Cough, No Short Of Breath Cardiac: No Chest Pain, No Edema, No Syncope Abdominal/Gastrointestinal: No Abdominal Pain, No Nausea, No Vomiting, No Diarrhea Genitourinary Symptoms: No Dysuria Musculoskeletal: No Back Pain, No Neck Pain Skin: No Rash Neurological: No Dizziness, No Focal Weakness, No Sensory Changes Psychological: No Symptoms Endocrine: No Symptoms Hematologic/Lymphatic: No Symptoms Immunological/Allergic: No Symptoms Objective Exam General Appearance: no apparent distress, alert Neurologic Exam: alert, oriented x 3, cooperative, normal mood/affect, nml cerebellar function, sensation nml, No motor deficits Skin Exam: normal color, warm, dry Wound Assessment: Skin/Wound Assessment Wound/Incision Assessment Start: 04/21/19 08: 23 Text: Status: Active Freq: Q6H Protocol: Document 05/03/19 07:56 LYDIA (Rec: 05/03/19 07:56 LYDIA [id number]) Wound/Incision Assessment Right Knee Wound Assessment Shift Assessment Wound Type Incision Wound Stage Non Pressure Wound Drainage Amount None Drainage Odor None/Absent General Appearance Well Approximated Open to air Surrounding Tissue [place] Edematous Comment Steri strips to surgical incision. Leg elevated. Wound Photo Photo Taken No Eye Exam: PERRL, EOMI, eyes nml inspection Ears, Nose, Throat Exam: normal ENT inspection, pharynx normal, moist mucous membranes Neck Exam: normal inspection, non-tender, supple, full range of motion Respiratory Exam: normal breath sounds, lungs clear, No respiratory distress Cardiovascular Exam: regular rate/rhythm, normal heart sounds Gastrointestinal/Abdomen Exam: soft, No tenderness, No mass Extremity Exam: normal inspection, normal range of motion Back Exam: normal inspection, normal range of motion, No CVA tenderness, No vertebral tenderness Pelvic Exam: deferred Rectal Exam: deferred OBJECTIVE DATA Vital Signs: Vital Signs - 24 hr Temp Pulse Resp BP Pulse Ox 05/03/19 07:42 97.6 F 69 18 161/69 95 05/02/19 20:00 98.1 F 65 18 135/60 97 Pain Assessment - Last Documented Pain Intensity 0 Pain Scale Used FLACC Intake and Output: Intake & Output 05/01/19 05/02/19 05/03/1920/19 11:59 11:59 11:59 11:59 Intake Total 1220 580 360 Output Total 900 0 Balance 320 580 360 Weight 93 kg 92.2 kg Multi-Disciplinary Progress Notes: Multi-Disciplinary Progress Notes 05/03/19 10:50 Nutrition Note by Lavern Bryant F/u Note: Regular diet con't with 100% po intake. 04/29 labs= K+ wnl. Last blood glucose noted 04/26 = 180. Adm weight 95.3 kg; current weight 92.2 kg. Con't to recommend 1800 ADA cardiac diet. goal #1 met #2 not met. Goals ongoing. Will con't to monitor and f/u prn. T.DONTE Bryant Initialized on 05/03/19 10:50 - END OF NOTE Assessment/Plan (1) History of prosthetic unicompartmental arthroplasty of right knee Current Visit: Yes Status: Acute Code(s): Z96.651 - PRESENCE OF RIGHT ARTIFICIAL KNEE JOINT
[2019-05-03] MEDS: Norco 10/325 MG Tablet PO PRN (13:03)
[2019-05-03 17:01] LABS: ANION GAP 11.1 MEQ/L (5-15); BLOOD UREA NITROGEN 13 mg/dL (7-17); CHLORIDE 81 mmol/L (98-107); Calcium 9.3 mg/dL (8.4-10.2); Carbon Dioxide 39 mmol/L (22-30); Glucose 97 mg/dL (74-106); Potassium 3.6 mmol/L (3.5-5.1); SODIUM 127 mmol/L (137-145)
[2019-05-03] MEDS: Glucophage 500 MG PO SCH (21:29)
[2019-05-03] MEDS: xanAX 0.5 MG PO SCH (21:29)
[2019-05-03] MEDS: ceLEXa 20 MG PO SCH (21:29)
[2019-05-03] MEDS: DESYREL 50 MG PO SCH (21:30)
[2019-05-04] MEDS: Norco 10/325 MG Tablet PO PRN ×2 (09:22→22:17)
[2019-05-04] MEDS: Colace 100 MG PO SCH (09:23)
[2019-05-04] MEDS: Maxzide-25MG Tablet PO SCH (09:23)
[2019-05-04] MEDS: FISH OIL 1,000 MG CAPSULE PO SCH (09:23)
[2019-05-04] MEDS: LASIX 20 MG PO SCH ×2 (09:23→16:14)
[2019-05-04] MEDS: Calcium 500MG W/Vit D Tablet PO SCH ×2 (09:23→22:19)
[2019-05-04] MEDS: Klor Con 10 MEQ PO SCH ×2 (09:23→22:20)
[2019-05-04] MEDS: SYNTHROID 50 MCG PO SCH (09:24)
[2019-05-04] MEDS: celeBREX 100 MG PO SCH ×2 (09:24→22:19)
[2019-05-04] MEDS: Lopressor 50 MG PO SCH ×2 (09:24→22:20)
[2019-05-04] MEDS: ZOCOR 20MG PO SCH (09:24)
[2019-05-04] MEDS: Ecotrin 325 MG PO SCH ×2 (09:24→22:19)
[2019-05-04] MEDS: THERAGRAN MULTIVITAMIN PO SCH (09:24)
[2019-05-04] MEDS: Protonix 40MG Tablet PO SCH (09:24)
[2019-05-04] MEDS: TYLENOL 325 MG PO PRN (18:25)
[2019-05-04] MEDS ORDERED: DULCOLAX 5 MG PO ONE (22:00)
[2019-05-04] MEDS: ceLEXa 20 MG PO SCH (22:19)
[2019-05-04] MEDS: DESYREL 50 MG PO SCH (22:19)
[2019-05-04] MEDS: xanAX 0.5 MG PO SCH (22:20)
[2019-05-04] MEDS: Glucophage 500 MG PO SCH (22:20)
[2019-05-05] MEDS: Colace 100 MG PO SCH (10:00)
[2019-05-05] MEDS: Maxzide-25MG Tablet PO SCH (10:00)
[2019-05-05] MEDS: celeBREX 100 MG PO SCH ×2 (10:00→21:02)
[2019-05-05] MEDS: ZOCOR 20MG PO SCH (10:00)
[2019-05-05] MEDS: Calcium 500MG W/Vit D Tablet PO SCH ×2 (10:00→21:01)
[2019-05-05] MEDS: Lopressor 50 MG PO SCH ×2 (10:00→21:02)
[2019-05-05] MEDS: THERAGRAN MULTIVITAMIN PO SCH (10:00)
[2019-05-05] MEDS: Protonix 40MG Tablet PO SCH (10:00)
[2019-05-05] MEDS: LASIX 20 MG PO SCH ×2 (10:01→16:26)
[2019-05-05] MEDS: Klor Con 10 MEQ PO SCH ×2 (10:01→21:02)
[2019-05-05] MEDS: SYNTHROID 50 MCG PO SCH (10:01)
[2019-05-05] MEDS: Ecotrin 325 MG PO SCH ×2 (10:01→21:02)
[2019-05-05] MEDS: FISH OIL 1,000 MG CAPSULE PO SCH (10:01)
[2019-05-05] MEDS: TYLENOL 325 MG PO PRN (20:22)
[2019-05-05] MEDS: ceLEXa 20 MG PO SCH (21:02)
[2019-05-05] MEDS: Glucophage 500 MG PO SCH (21:02)
[2019-05-05] MEDS: DESYREL 50 MG PO SCH (21:02)
[2019-05-05] MEDS: xanAX 0.5 MG PO SCH (21:02)
[2019-05-06] MEDS: Norco 10/325 MG Tablet PO PRN ×2 (05:02→20:46)
[2019-05-06] MEDS: Ecotrin 325 MG PO SCH ×2 (09:43→22:17)
[2019-05-06] MEDS: Calcium 500MG W/Vit D Tablet PO SCH ×2 (09:43→22:17)
[2019-05-06] MEDS: Colace 100 MG PO SCH (09:43)
[2019-05-06] MEDS: celeBREX 100 MG PO SCH ×2 (09:43→22:17)
[2019-05-06] MEDS: FISH OIL 1,000 MG CAPSULE PO SCH (09:43)
[2019-05-06] MEDS: LASIX 20 MG PO SCH ×2 (09:44→16:31)
[2019-05-06] MEDS: Lopressor 50 MG PO SCH ×2 (09:44→22:17)
[2019-05-06] MEDS: Klor Con 10 MEQ PO SCH ×2 (09:44→22:18)
[2019-05-06] MEDS: Maxzide-25MG Tablet PO SCH (09:44)
[2019-05-06] MEDS: THERAGRAN MULTIVITAMIN PO SCH (09:45)
[2019-05-06] MEDS: ZOCOR 20MG PO SCH (09:45)
[2019-05-06] MEDS: SYNTHROID 50 MCG PO SCH (09:45)
[2019-05-06] MEDS: Protonix 40MG Tablet PO SCH (09:45)
--- NOTE | 2019-05-06 12:40 | PCM.NOTE ---
Date and Time: 05/06/19 1239 Subjective Assessment: doing ok - Review of Systems Constitutional: No Fever, No Chills Eyes: No Symptoms Ears, Nose, & Throat: No Symptoms Respiratory: No Cough, No Short Of Breath Cardiac: No Chest Pain, No Edema, No Syncope Abdominal/Gastrointestinal: No Abdominal Pain, No Nausea, No Vomiting, No Diarrhea Genitourinary Symptoms: No Dysuria Musculoskeletal: No Back Pain, No Neck Pain Skin: No Rash Neurological: No Dizziness, No Focal Weakness, No Sensory Changes Psychological: No Symptoms Endocrine: No Symptoms Hematologic/Lymphatic: No Symptoms Immunological/Allergic: No Symptoms Objective Exam General Appearance: no apparent distress, alert Neurologic Exam: alert, oriented x 3, cooperative, normal mood/affect, nml cerebellar function, sensation nml, No motor deficits Skin Exam: normal color, warm, dry Wound Assessment: Skin/Wound Assessment Wound/Incision Assessment Start: 04/21/19 08: 23 Text: Status: Active Freq: Q6H Protocol: Document 05/06/19 08:00 CCA (Rec: 05/06/19 09:53 CCA [id number]) Wound/Incision Assessment Right Knee Wound Assessment Shift Assessment Wound Type Incision Wound Stage Non Pressure Wound Drainage Amount None Surrounding Tissue [place] Edematous Comment Steri strips to surgical incision. no signs of infection Wound Photo Photo Taken No Eye Exam: PERRL, EOMI, eyes nml inspection Ears, Nose, Throat Exam: normal ENT inspection, pharynx normal, moist mucous membranes Neck Exam: normal inspection, non-tender, supple, full range of motion Respiratory Exam: normal breath sounds, lungs clear, No respiratory distress Cardiovascular Exam: regular rate/rhythm, normal heart sounds Gastrointestinal/Abdomen Exam: soft, No tenderness, No mass Extremity Exam: normal inspection, normal range of motion Back Exam: normal inspection, normal range of motion, No CVA tenderness, No vertebral tenderness Pelvic Exam: deferred Rectal Exam: deferred OBJECTIVE DATA Vital Signs: Vital Signs - 24 hr Temp Pulse Resp BP Pulse Ox 05/06/19 07:25 97.7 F 74 17 138/64 92 L 05/05/19 20:00 97.9 F 71 20 125/59 97 Pain Assessment - Last Documented Pain Intensity 2 Pain Scale Used 0-10 Pain Scale Intake and Output: Intake & Output 05/04/19 05/05/19 05/06/19 05/07/19 11:59 11:59 11:59 11:59 Intake Total 1140 700 660 Balance 1140 700 660 Weight 92.6 kg Assessment/Plan (1) History of prosthetic unicompartmental arthroplasty of right knee Current Visit: Yes Status: Acute Code(s): Z96.651 - PRESENCE OF RIGHT ARTIFICIAL KNEE JOINT
[2019-05-06] MEDS: ceLEXa 20 MG PO SCH (22:17)
[2019-05-06] MEDS: xanAX 0.5 MG PO SCH (22:17)
[2019-05-06] MEDS: Glucophage 500 MG PO SCH (22:17)
[2019-05-06] MEDS: DESYREL 50 MG PO SCH (22:17)
[2019-05-07] MEDS: Ecotrin 325 MG PO SCH ×2 (10:44→22:28)
[2019-05-07] MEDS: ZOCOR 20MG PO SCH (10:44)
[2019-05-07] MEDS: LASIX 20 MG PO SCH (10:44)
[2019-05-07] MEDS: Calcium 500MG W/Vit D Tablet PO SCH ×2 (10:44→22:27)
[2019-05-07] MEDS: Klor Con 10 MEQ PO SCH ×2 (10:44→22:28)
[2019-05-07] MEDS: Protonix 40MG Tablet PO SCH (10:45)
[2019-05-07] MEDS: Maxzide-25MG Tablet PO SCH (10:45)
[2019-05-07] MEDS: THERAGRAN MULTIVITAMIN PO SCH (10:45)
[2019-05-07] MEDS: Lopressor 50 MG PO SCH ×2 (10:45→22:28)
[2019-05-07] MEDS: Colace 100 MG PO SCH (10:45)
[2019-05-07] MEDS: celeBREX 100 MG PO SCH ×2 (10:45→22:27)
[2019-05-07] MEDS: FISH OIL 1,000 MG CAPSULE PO SCH (10:45)
[2019-05-07] MEDS: SYNTHROID 50 MCG PO SCH (10:45)
[2019-05-07 21:18] VITALS: O2SAT 95
[2019-05-07] MEDS: TYLENOL 325 MG PO PRN (22:11)
[2019-05-07] MEDS: ceLEXa 20 MG PO SCH (22:28)
[2019-05-07] MEDS: DESYREL 50 MG PO SCH (22:28)
[2019-05-07] MEDS: Glucophage 500 MG PO SCH (22:28)
[2019-05-07] MEDS: xanAX 0.5 MG PO SCH (22:28)
[2019-05-08 07:32] VITALS: BP 151/86; PULSE 82
[2019-05-08] MEDS: LASIX 20 MG PO SCH ×2 (08:36→09:18)
[2019-05-08] MEDS: TYLENOL 325 MG PO PRN (09:16)
[2019-05-08] MEDS: FISH OIL 1,000 MG CAPSULE PO SCH (09:17)
[2019-05-08] MEDS: celeBREX 100 MG PO SCH (09:17)
[2019-05-08] MEDS: Protonix 40MG Tablet PO SCH (09:18)
[2019-05-08] MEDS: ZOCOR 20MG PO SCH (09:18)
[2019-05-08] MEDS: Colace 100 MG PO SCH (09:18)
[2019-05-08] MEDS: Lopressor 50 MG PO SCH (09:18)
[2019-05-08] MEDS: Klor Con 10 MEQ PO SCH (09:18)
[2019-05-08] MEDS: SYNTHROID 50 MCG PO SCH (09:18)
[2019-05-08] MEDS: Maxzide-25MG Tablet PO SCH (09:18)
[2019-05-08] MEDS: Ecotrin 325 MG PO SCH (09:18)
[2019-05-08] MEDS: Calcium 500MG W/Vit D Tablet PO SCH (09:18)
[2019-05-08] MEDS: THERAGRAN MULTIVITAMIN PO SCH (09:18)
--- NOTE | 2019-05-08 13:32 | PCM.DS ---
Discharge Summary Date of Admission: 04/19/19 16:28 Admitting Physician: INNA SORENSEN Primary Care Provider: INNA SORENSEN Allergies Allergies bee venom protein (honey bee) Allergy (Verified 04/19/19 16:42) Penicillins Allergy (Verified 02/09/17 20:02) Sulfa (Sulfonamide Antibiotics) Allergy (Verified 04/19/19 16:42) codeine Adverse Reaction (Severe, Verified 02/09/17 20:02) morphine Adverse Reaction (Verified 02/09/17 20:02) Hospital Summary - Hospital Course Hospital Course: Chief Complaint Diagnosis DECONDITIONING R/T RIGHT KNEE ARTHROPLASTY Allergies Allergy/AdvReac Type Severity Reaction Status Date / Time bee venom protein (honey bee) Allergy Verified 04/19/19 16:42 Penicillins Allergy Verified 02/09/17 20:02 Sulfa (Sulfonamide Allergy Verified 04/19/19 16:42 Antibiotics) codeine AdvReac Severe Verified 02/09/17 20:02 morphine AdvReac Verified 02/09/17 20:02 Vital Signs (Last 24 hours) Temp Pulse Resp BP Pulse Ox 05/08/19 07:31 98.5 F 82 20 151/86 95 05/07/19 20:10 97.9 F 64 20 150/65 95 Home Medications Medication Instructions Recorded Confirmed Last Taken Type ALPRAZolam [Alprazolam] 0.5 mg PO HS 04/19/19 04/19/19 04/18/19 History Aspirin [Ecotrin] 325 mg PO BID 04/19/19 04/19/19 Unknown History Atorvastatin Calcium 20 mg PO DAILY 04/19/19 04/19/19 04/19/19 History Calcium Carb/Vitamin D3/Vit K1 1 each PO BID 04/19/19 04/19/19 Unknown History [Calcium + D Soft Chewable Tab] Celecoxib [Celebrex] 100 mg PO BID 04/19/19 04/19/19 04/19/19 History Citalopram Hydrobromide 40 mg PO HS 04/19/19 04/19/19 04/19/19 History [Citalopram HBr] Clotrimazole/Betamet Diprop 15 gm TP BID PRN 04/19/19 04/19/19 Unknown History [Lotrisone Cream] Docusate Sodium [Stool Softener] 100 mg PO DAILY 04/19/19 04/19/19 04/19/19 History Furosemide 20 mg [Lasix 20 20 mg PO DAILY 04/19/19 04/19/19 04/19/19 History mg] Glucosamine Sulfate 2 tab PO DAILY 04/19/19 04/19/19 Unknown History Hctz/Triamterene 25/37.5 mg 2 tab PO DAILY 04/19/19 04/19/19 04/19/19 History [Maxzide 25MG] Hydrocodone Bit/Acetaminophen 1 each PO Q4H PRN 04/19/19 04/19/19 04/19/19 History [Hydrocodon-Acetaminophn 10-325] Levothyroxine Sodium 50 Mcg 50 mcg PO DAILY 04/19/19 04/19/19 04/19/19 History [Synthroid 50 Mcg] Metformin HCl 500 mg PO HS 04/19/19 04/19/19 Unknown History Metoprolol Tartrate 50 mg 50 mg PO BID 04/19/19 04/19/19 04/19/19 History [Lopressor 50 MG] Multivitamin [Multi-Vitamin Daily] 1 each PO DAILY 04/19/19 04/19/19 04/19/19 History [place]-3 Fatty Acids [[place]-3] 4,000 mg PO DAILY 04/19/19 04/19/19 Unknown History PANTOPRAZOLE 40 mg Tablet 40 mg PO QAM 04/19/19 04/19/19 04/19/19 History [Protonix 40MG Tablet] Potassium Chloride 10 Meq Tab* 10 meq PO BID 04/19/19 04/19/19 Unknown History [Klor Con 10 MEQ] Trazodone HCl 100 mg PO HS 04/19/19 04/19/19 04/18/19 History Current Medications Generic Name Dose Route Start Last Admin Trade Name Freq PRN Reason Stop Dose Admin Acetaminophen 650 mg 05/04/19 18:23 05/08/19 09:16 Tylenol 325 Mg PO 06/03/19 18:22 650 mg Q4H PRN PRN Administration PAIN AND/OR FEVER Hydrocodone Bitart/Acetaminophen 1 tab 05/05/19 17:56 05/06/19 20:46 [place] 10/325 Mg Tablet PO 05/10/19 12:00 1 tab Q4H PRN PRN Administration PAIN Alprazolam 0.5 mg 04/19/19 22:00 05/07/19 22:28 Xanax 0.5 Mg PO 05/19/19 21:59 0.5 mg HS CHANO Administration Aspirin 325 mg 04/20/19 10:00 05/08/19 09:18 Ecotrin 325 Mg PO 05/20/19 09:59 325 mg BID CHANO Administration Calcium Carbonate 1 tab 04/20/19 10:00 05/08/19 09:18 Calcium 500mg W/Vit D Tablet PO 05/20/19 09:59 1 tab BID CHANO Administration Celecoxib 100 mg 04/19/19 22:00 05/08/19 09:17 Celebrex 100 Mg PO 05/19/19 21:59 100 mg BID CHANO Administration Citalopram Hydrobromide 40 mg 04/19/19 22:00 05/07/19 22:28 Celexa 20 Mg PO 05/19/19 21:59 40 mg HS CHANO Administration Clotrimazole 0 gm 04/20/19 07:48 04/23/19 21:39 Lotrisone Cream TP 05/20/19 07:47 1 gm BID PRN PRN Administration EXCORIATION Docusate Sodium 100 mg 04/20/19 10:00 05/08/19 09:18 Colace 100 Mg PO 05/20/19 09:59 100 mg DAILY CHANO Administration Fish Oil 4,000 mg 04/20/19 10:00 05/08/19 09:17 Fish Oil 1,000 Mg Capsule PO 05/20/19 09:59 4,000 mg DAILY CHANO Administration Furosemide 20 mg 04/29/19 10:00 05/08/19 09:18 Lasix 20 Mg PO 05/29/19 09:59 20 mg BID DIURETIC CHANO Administration Levothyroxine Sodium 50 mcg 04/20/19 10:00 05/08/19 09:18 Synthroid 50 Mcg PO 05/20/19 09:59 50 mcg DAILY [facility] Administration Magnesium Hydroxide 30 ml 04/19/19 15:54 Milk Of Magnesia 30 Ml PO 05/19/19 15:53 HS PRN PRN CONSTIPATION Metformin HCl 500 mg 04/20/19 22:00 05/07/19 22:28 Glucophage 500 Mg PO 05/20/19 21:59 500 mg HS CHANO Administration Metoprolol Tartrate 50 mg 04/19/19 22:00 05/08/19 09:18 Lopressor 50 Mg PO 05/19/19 21:59 50 mg BID CHANO Administration Multivitamins Therapeutic 1 tab 04/20/19 10:00 05/08/19 09:18 Theragran Multivitamin PO 05/20/19 09:59 1 tab DAILY [facility]ANO Administration Nystatin 1 gm 04/26/19 09:27 Nystop 30 Gm Cream [facility] 05/26/19 09:26 PRN PRN REDNESS/IRRITATION Ondansetron HCl 4 mg 04/23/19 12:04 Zofran Odt 4 Mg PO 05/23/19 12:03 Q6H PRN PRN NAUSEA/VOMITING Pantoprazole Sodium 40 mg 04/20/19 10:00 05/08/19 09:18 Protonix 40mg Tablet PO 05/20/19 09:59 40 mg QAM CHANO Administration Phenyleph/Shark Oil/Min Oil/Petrol 1 gm 04/30/19 14:45 04/30/19 15:57 Preparation H Ointment 05/30/19 14:44 1 gm QIDPRN PRN Administration HEMORRHOIDS Potassium Chloride 10 meq 04/26/19 22:00 05/08/19 09:18 Klor Con 10 Meq PO 05/26/19 21:59 10 meq BID CHANO Administration Simvastatin 20 mg 04/20/19 10:00 05/08/19 09:18 Zocor 20mg PO 05/20/19 09:59 20 mg DAILY CHANO Administration Throat Lozenges 15 mg 04/28/19 10:42 Cepacol Sore Throat Lozenge PO 05/28/19 10:44 Q2H PRN PAIN Trazodone HCl 100 mg 04/19/19 22:00 05/07/19 22:28 Desyrel 50 Mg PO 05/19/19 21:59 100 mg HS CHANO Administration Triamterene/HCTZ 2 tab 04/20/19 10:00 05/08/19 09:18 Maxzide-25mg Tablet PO 05/20/19 09:59 2 tab DAILY [facility]O Administration Discontinued Medications Generic Name Dose Route Start Last Admin Trade Name Freq PRN Reason Stop Dose Admin Acetaminophen 1,000 mg 04/19/19 15:54 Tylenol Extra Strength 500 Mg PO 05/19/19 15:53 Q8HPRN PRN PAIN Hydrocodone Bitart/Acetaminophen 1 tab 04/19/19 15:54 04/20/19 01:34 [place] 10/325 Mg Tablet PO 04/24/19 15:53 1 tab Q4H PRN Administration PAIN Hydrocodone Bitart/Acetaminophen 1 tab 04/20/19 08:00 04/23/19 21:35 [place] 10/325 Mg Tablet PO 04/24/19 15:53 1 tab Q4HPRN PRN Administration PAIN Hydrocodone Bitart/Acetaminophen 1 tab 04/25/19 00:09 04/29/19 15:20 [place] 10/325 Mg Tablet PO 04/30/19 00:08 1 tab Q4H PRN PRN Administration PAIN Hydrocodone Bitart/Acetaminophen 1 tab 04/30/19 17:54 05/04/19 22:17 [place] 10/325 Mg Tablet PO 05/05/19 17:53 1 tab Q4H PRN PRN Administration PAIN Aspirin 325 mg 04/20/19 10:00 Ecotrin 325 Mg PO 05/20/19 09:59 DAILY CHANO Bisacodyl 10 mg 04/19/19 15:54 Dulcolax 10 Mg Supp RC 05/19/19 15:53 DAILY PRN PRN CONSTIPATION Bisacodyl 10 mg 05/04/19 22:00 05/04/19 22:19 Dulcolax 5 Mg PO 05/04/19 22:01 10 mg HS ONE Administration Celecoxib 200 mg 04/19/19 22:00 Celebrex 100 Mg PO 05/19/19 21:59 BID CHANO Docusate Sodium 100 mg 04/19/19 22:00 Colace 100 Mg PO 05/19/19 21:59 BID CHANO Furosemide 20 mg 04/20/19 10:00 04/28/19 09:32 Lasix 20 Mg PO 05/20/19 09:59 20 mg DAILY CHANO Administration Furosemide 20 mg 04/27/19 14:00 04/28/19 09:32 Lasix 20 Mg PO 05/27/19 13:59 20 mg DAILY CHANO Administration Miscellaneous Information 1 each 04/19/19 16:15 Medication Intervention PO 05/19/19 16:14 .RN TO CHECK ON [facility] Non-Formulary Medication 2 tab 04/20/19 10:00 Glucosamine Sulfate [Glucosamine Sulfate] PO 05/20/19 09:59 DAILY CHANO Oxycodone HCl 10 mg 04/19/19 22:00 Oxy-Ir 5 Mg PO 04/24/19 21:59 BID CHANO Polyethylene Glycol 17 gm 04/19/19 15:54 Miralax Powder 17gm Packet PO 05/19/19 15:53 DAILY PRN PRN CONSTIPATION Potassium Chloride 10 meq 04/20/19 10:00 04/29/19 21:59 Klor Con 10 Meq PO 04/29/19 22:01 10 meq BID CHANO Administration Senna 17.2 mg 04/19/19 22:00 Senokot 8.6 Mg PO 05/19/19 21:59 BID CHANO Simvastatin 20 mg 04/20/19 10:00 Zocor 20mg PO 05/20/19 09:59 DAILY CHANO Triamterene/HCTZ 2 tab 04/20/19 10:00 Maxzide-25mg Tablet PO 05/20/19 09:59 DAILY [facility] Tuberculin PPD 5 unit 04/19/19 16:29 04/20/19 04:40 Aplisol ID 04/19/19 16:30 Not Given ONCE ONE Tuberculin PPD 5 unit 05/02/19 17:37 05/02/19 17:45 Aplisol ID 05/02/19 17:38 Not Given ONCE ONE Intake & Output (Last 24 hours) 05/06/19 05/07/19 05/08/19 05/09/19 11:59 11:59 11:59 11:59 Intake Total 660 840 760 120 Balance 660 840 760 120 Weight 91.1 kg Patient Care Notes (Last 24 hours) 05/08/19 10:39 Nutrition Note by Ray,Lavern F/u Note: Regular diet con't with 50-100% po intake. Labs 05/03= Na 127, weight down 4.2 kg/19 days. Pt 174%IBW. Goal met most of the time and to con't. Add goal #2) maintain glu wnl. Con't to recommend 1800 ADA diet. Will f/u prn. T.DONTE Bryant Initialized on 05/08/19 10:39 - END OF NOTE - Vitals & Intake/Output Vital Signs: Vital Signs Temperature 98.5 F 05/08/19 07:31 Pulse Rate 82 05/08/19 07:31 Respiratory Rate 20 05/08/19 07:31 Blood Pressure 151/86 05/08/19 07:31 O2 Sat by Pulse Oximetry 95 05/08/19 07:31 Intake & Output: Intake & Output 05/06/19 05/07/19 05/08/19 05/09/19 11:59 11:59 11:59 11:59 Intake Total 660 840 760 120 Balance 660 840 760 120 Weight 91.1 kg - Lab Result Diagrams: 04/26/19 09:49 05/03/19 16:35 - Procedures and Test Procedures and Tests throughout Hospitalization: Therapy Orders & Screens 04/19/19 16:38 PT Eval & Treat ( Order) ROUTINE Reason for Eval:: DECONDITIONING RT RIGHT KNEE ARTHROPLASTY Diagnosis: TOTAL RIGHT KNEE POST OP 04/19/19 18:00 OT Screen per Nursing Assess Comment: Protocol Order Physician Instructions: Greater than 3 points order OT Admission Screening Reason For Exam: Triggered on Admission Diagnosis: TOTAL RIGHT KNEE POST OP Open Wound/Cellutlitis/Pressure Ulcers: No Acute Fx/ORIF/Change in wt bearing status: No Severe MUSCULOSKELETAL pain: No ADL Dysfunction: Yes: R TKA Acute CVA w/Hemiparesis/Hemiplegia: No Decreased Functional Mobility/Strength: Yes Sprain/Strain: No Acute Post-op Mobility Dysfunction: Yes: R TKA Total Points: 7 PT Screen per Nursing Assess Comment: Protocol Order Physician Instructions: Greater than 3 points order PT Admission Screenin Reason For Exam: Triggered on Admission Diagnosis: TOTAL RIGHT KNEE POST OP Open Wound/Cellutlitis/Pressure Ulcers: No Acute Fx/ORIF/Change in wt bearing status: No Severe MUSCULOSKELETAL pain: No ADL Dysfunction: Yes: R TKA Acute CVA w/Hemiparesis/Hemiplegia: No Decreased Functional Mobility/Strength: Yes Sprain/Strain: No Acute Post-op Mobility Dysfunction: Yes: R TKA Total Points: 7 05/06/19 17:28 OT Eval and Treat ( Order) ROUTINE Comment: Consulting Provider: Physician Instructions: Reason For Exam: Evaluate: Yes Treat: Yes Reason for Evaluation: adl gait dysfunction Diagnosis: DECONDITIONING R/T RIGHT KNEE ARTHROPLASTY Discharge Exam General Appearance: no apparent distress, alert Neurologic Exam: alert, oriented x 3, cooperative, normal mood/affect, nml cerebellar function, sensation nml, No motor deficits Eye Exam: PERRL, EOMI, eyes nml inspection Ears, Nose, Throat Exam: normal ENT inspection, pharynx normal, moist mucous membranes Neck Exam: normal inspection, non-tender, supple, full range of motion Respiratory Exam: normal breath sounds, lungs clear, No respiratory distress Cardiovascular Exam: regular rate/rhythm, normal heart sounds Gastrointestinal/Abdomen Exam: soft, No tenderness, No mass Pelvic Exam: deferred Rectal Exam: deferred Back Exam: normal inspection, normal range of motion, No CVA tenderness, No vertebral tenderness Extremity Exam: normal inspection, normal range of motion Skin Exam: normal color, warm, dry Wound Assessment: Skin/Wound Assessment Wound/Incision Assessment Start: 04/21/19 08: 23 Text: Status: Active Freq: Q6H Protocol: Document 05/08/19 09:00 CCA (Rec: 05/08/19 09:30 CCA [id number]) Wound/Incision Assessment Right Knee Wound Assessment Shift Assessment Wound Type Incision Wound Stage Non Pressure Wound Dressing Status Dry & Intact General Appearance Well Approximated Surrounding Tissue Pinal Comment steri strips intact. no redness noted. ice applied at this time. Wound Photo Photo Taken No Final Diagnosis/Problem List - Final Discharge Diagnosis/Problem (1) History of prosthetic unicompartmental arthroplasty of right knee Current Visit: Yes Status: Acute Assessment & Plan: Chief Complaint Diagnosis DECONDITIONING R/T RIGHT KNEE ARTHROPLASTY Allergies Allergy/AdvReac Type Severity Reaction Status Date / Time bee venom protein (honey bee) Allergy Verified 04/19/19 16:42 Penicillins Allergy Verified 02/09/17 20:02 Sulfa (Sulfonamide Allergy Verified 04/19/19 16:42 Antibiotics) codeine AdvReac Severe Verified 02/09/17 20:02 morphine AdvReac Verified 02/09/17 20:02 Vital Signs (Last 24 hours) Temp Pulse Resp BP Pulse Ox 05/08/19 07:31 98.5 F 82 20 151/86 95 05/07/19 20:10 97.9 F 64 20 150/65 95 Home Medications Medication Instructions Recorded Confirmed Last Taken Type ALPRAZolam [Alprazolam] 0.5 mg PO HS 04/19/19 04/19/19 04/18/19 History Aspirin [Ecotrin] 325 mg PO BID 04/19/19 04/19/19 Unknown History Atorvastatin Calcium 20 mg PO DAILY 04/19/19 04/19/19 04/19/19 History Calcium Carb/Vitamin D3/Vit K1 1 each PO BID 04/19/19 04/19/19 Unknown History [Calcium + D Soft Chewable Tab] Celecoxib [Celebrex] 100 mg PO BID 04/19/19 04/19/19 04/19/19 History Citalopram Hydrobromide 40 mg PO HS 04/19/19 04/19/19 04/19/19 History [Citalopram HBr] Clotrimazole/Betamet Diprop 15 gm TP BID PRN 04/19/19 04/19/19 Unknown History [Lotrisone Cream] Docusate Sodium [Stool Softener] 100 mg PO DAILY 04/19/19 04/19/19 04/19/19 History Furosemide 20 mg [Lasix 20 20 mg PO DAILY 04/19/19 04/19/19 04/19/19 History mg] Glucosamine Sulfate 2 tab PO DAILY 04/19/19 04/19/19 Unknown History Hctz/Triamterene 25/37.5 mg 2 tab PO DAILY 04/19/19 04/19/19 04/19/19 History [Maxzide 25MG] Hydrocodone Bit/Acetaminophen 1 each PO Q4H PRN 04/19/19 04/19/19 04/19/19 History [Hydrocodon-Acetaminophn 10-325] Levothyroxine Sodium 50 Mcg 50 mcg PO DAILY 04/19/19 04/19/19 04/19/19 History [Synthroid 50 Mcg] Metformin HCl 500 mg PO HS 04/19/19 04/19/19 Unknown History Metoprolol Tartrate 50 mg 50 mg PO BID 04/19/19 04/19/19 04/19/19 History [Lopressor 50 MG] Multivitamin [Multi-Vitamin Daily] 1 each PO DAILY 04/19/19 04/19/19 04/19/19 History [place]-3 Fatty Acids [[place]-3] 4,000 mg PO DAILY 04/19/19 04/19/19 Unknown History PANTOPRAZOLE 40 mg Tablet 40 mg PO QAM 04/19/19 04/19/19 04/19/19 History [Protonix 40MG Tablet] Potassium Chloride 10 Meq Tab* 10 meq PO BID 04/19/19 04/19/19 Unknown History [Klor Con 10 MEQ] Trazodone HCl 100 mg PO HS 04/19/19 04/19/19 04/18/19 History Current Medications Generic Name Dose Route Start Last Admin Trade Name Freq PRN Reason Stop Dose Admin Acetaminophen 650 mg 05/04/19 18:23 05/08/19 09:16 Tylenol 325 Mg PO 06/03/19 18:22 650 mg Q4H PRN PRN Administration PAIN AND/OR FEVER Hydrocodone Bitart/Acetaminophen 1 tab 05/05/19 17:56 05/06/19 20:46 [place] 10/325 Mg Tablet PO 05/10/19 12:00 1 tab Q4H PRN PRN Administration PAIN Alprazolam 0.5 mg 04/19/19 22:00 05/07/19 22:28 Xanax 0.5 Mg PO 05/19/19 21:59 0.5 mg HS CHANO Administration Aspirin 325 mg 04/20/19 10:00 05/08/19 09:18 Ecotrin 325 Mg PO 05/20/19 09:59 325 mg BID CHANO Administration Calcium Carbonate 1 tab 04/20/19 10:00 05/08/19 09:18 Calcium 500mg W/Vit D Tablet PO 05/20/19 09:59 1 tab BID CHANO Administration Celecoxib 100 mg 04/19/19 22:00 05/08/19 09:17 Celebrex 100 Mg PO 05/19/19 21:59 100 mg BID CHANO Administration Citalopram Hydrobromide 40 mg 04/19/19 22:00 05/07/19 22:28 Celexa 20 Mg PO 05/19/19 21:59 40 mg HS CHANO Administration Clotrimazole 0 gm 04/20/19 07:48 04/23/19 21:39 Lotrisone Cream TP 05/20/19 07:47 1 gm BID PRN PRN Administration EXCORIATION Docusate Sodium 100 mg 04/20/19 10:00 05/08/19 09:18 Colace 100 Mg PO 05/20/19 09:59 100 mg DAILY CHANO Administration Fish Oil 4,000 mg 04/20/19 10:00 05/08/19 09:17 Fish Oil 1,000 Mg Capsule PO 05/20/19 09:59 4,000 mg DAILY CHANO Administration Furosemide 20 mg 04/29/19 10:00 05/08/19 09:18 Lasix 20 Mg PO 05/29/19 09:59 20 mg BID DIURETIC CHANO Administration Levothyroxine Sodium 50 mcg 04/20/19 10:00 05/08/19 09:18 Synthroid 50 Mcg PO 05/20/19 09:59 50 mcg DAILY CHANO Administration Magnesium Hydroxide 30 ml 04/19/19 15:54 Milk Of Magnesia 30 Ml PO 05/19/19 15:53 HS PRN PRN CONSTIPATION Metformin HCl 500 mg 04/20/19 22:00 05/07/19 22:28 Glucophage 500 Mg PO 05/20/19 21:59 500 mg HS CHANO Administration Metoprolol Tartrate 50 mg 04/19/19 22:00 05/08/19 09:18 Lopressor 50 Mg PO 05/19/19 21:59 50 mg BID CHANO Administration Multivitamins Therapeutic 1 tab 04/20/19 10:00 05/08/19 09:18 Theragran Multivitamin PO 05/20/19 09:59 1 tab DAILY CHANO Administration Nystatin 1 gm 04/26/19 09:27 Nystop 30 Gm Cream TOP 05/26/19 09:26 PRN PRN REDNESS/IRRITATION Ondansetron HCl 4 mg 04/23/19 12:04 Zofran Odt 4 Mg PO 05/23/19 12:03 Q6H PRN PRN NAUSEA/VOMITING Pantoprazole Sodium 40 mg 04/20/19 10:00 05/08/19 09:18 Protonix 40mg Tablet PO 05/20/19 09:59 40 mg QAM CHANO Administration Phenyleph/Shark Oil/Min Oil/Petrol 1 gm 04/30/19 14:45 04/30/19 15:57 Preparation H Ointment RC 05/30/19 14:44 1 gm QIDPRN PRN Administration HEMORRHOIDS Potassium Chloride 10 meq 04/26/19 22:00 05/08/19 09:18 Klor Con 10 Meq PO 05/26/19 21:59 10 meq BID CHANO Administration Simvastatin 20 mg 04/20/19 10:00 05/08/19 09:18 Zocor 20mg PO 05/20/19 09:59 20 mg DAILY CHANO Administration Throat Lozenges 15 mg 04/28/19 10:42 Cepacol Sore Throat Lozenge PO 05/28/19 10:44 Q2H PRN PAIN Trazodone HCl 100 mg 04/19/19 22:00 05/07/19 22:28 Desyrel 50 Mg PO 05/19/19 21:59 100 mg HS CHANO Administration Triamterene/HCTZ 2 tab 04/20/19 10:00 05/08/19 09:18 Maxzide-25mg Tablet PO 05/20/19 09:59 2 tab DAILY [facility] Administration Discontinued Medications Generic Name Dose Route Start Last Admin Trade Name Freq PRN Reason Stop Dose Admin Acetaminophen 1,000 mg 04/19/19 15:54 Tylenol Extra Strength 500 Mg PO 05/19/19 15:53 Q8HPRN PRN PAIN Hydrocodone Bitart/Acetaminophen 1 tab 04/19/19 15:54 04/20/19 01:34 [place] 10/325 Mg Tablet PO 04/24/19 15:53 1 tab Q4H PRN Administration PAIN Hydrocodone Bitart/Acetaminophen 1 tab 04/20/19 08:00 04/23/19 21:35 [place] 10/325 Mg Tablet PO 04/24/19 15:53 1 tab Q4HPRN PRN Administration PAIN Hydrocodone Bitart/Acetaminophen 1 tab 04/25/19 00:09 04/29/19 15:20 [place] 10/325 Mg Tablet PO 04/30/19 00:08 1 tab Q4H PRN PRN Administration PAIN Hydrocodone Bitart/Acetaminophen 1 tab 04/30/19 17:54 05/04/19 22:17 [place] 10/325 Mg Tablet PO 05/05/19 17:53 1 tab Q4H PRN PRN Administration PAIN Aspirin 325 mg 04/20/19 10:00 Ecotrin 325 Mg PO 05/20/19 09:59 DAILY [facility]ANO Bisacodyl 10 mg 04/19/19 15:54 Dulcolax 10 Mg Supp RC 05/19/19 15:53 DAILY PRN PRN CONSTIPATION Bisacodyl 10 mg 05/04/19 22:00 05/04/19 22:19 Dulcolax 5 Mg PO 05/04/19 22:01 10 mg HS ONE Administration Celecoxib 200 mg 04/19/19 22:00 Celebrex 100 Mg PO 05/19/19 21:59 BID CHANO Docusate Sodium 100 mg 04/19/19 22:00 Colace 100 Mg PO 05/19/19 21:59 BID CHANO Furosemide 20 mg 04/20/19 10:00 04/28/19 09:32 Lasix 20 Mg PO 05/20/19 09:59 20 mg DAILY CHANO Administration Furosemide 20 mg 04/27/19 14:00 04/28/19 09:32 Lasix 20 Mg PO 05/27/19 13:59 20 mg DAILY CHANO Administration Miscellaneous Information 1 each 04/19/19 16:15 Medication Intervention PO 05/19/19 16:14 .RN TO CHECK ON [facility] Non-Formulary Medication 2 tab 04/20/19 10:00 Glucosamine Sulfate [Glucosamine Sulfate] PO 05/20/19 09:59 DAILY CHANO Oxycodone HCl 10 mg 04/19/19 22:00 Oxy-Ir 5 Mg PO 04/24/19 21:59 BID CHANO Polyethylene Glycol 17 gm 04/19/19 15:54 Miralax Powder 17gm Packet PO 05/19/19 15:53 DAILY PRN PRN CONSTIPATION Potassium Chloride 10 meq 04/20/19 10:00 07/15/19 21:59 Klor Con 10 Meq PO 04/29/19 22:01 10 meq BID CHANO Administration Senna 17.2 mg 04/19/19 22:00 Senokot 8.6 Mg PO 05/19/19 21:59 BID CHANO Simvastatin 20 mg 04/20/19 10:00 Zocor 20mg PO 05/20/19 09:59 DAILY [facility]O Triamterene/HCTZ 2 tab 04/20/19 10:00 Maxzide-25mg Tablet PO 05/20/19 09:59 DAILY [facility] Tuberculin PPD 5 unit 04/19/19 16:29 04/20/19 04:40 Aplisol ID 04/19/19 16:30 Not Given ONCE ONE Tuberculin PPD 5 unit 05/02/19 17:37 05/02/19 17:45 Aplisol ID 05/02/19 17:38 Not Given ONCE ONE Intake & Output (Last 24 hours) 05/06/19 05/07/19 05/08/19 05/09/19 11:59 11:59 11:59 11:59 Intake Total 660 840 760 120 Balance 660 840 760 120 Weight 91.1 kg Patient Care Notes (Last 24 hours) 05/08/19 10:39 Nutrition Note by Lavern Bryant F/u Note: Regular diet con't with 50-100% po intake. Labs 05/03= Na 127, weight down 4.2 kg/19 days. Pt 174%IBW. Goal met most of the time and to con't. Add goal #2) maintain glu wnl. Con't to recommend 1800 ADA diet. Will f/u prn. DONTE Campbell Initialized on 05/08/19 10:39 - END OF NOTE Code(s): Z96.651 - PRESENCE OF RIGHT ARTIFICIAL KNEE JOINT - Discharge Disposition: Home, Self-Care Condition: Stable Prescriptions: Continue Hydrocodone Bit/Acetaminophen [Hydrocodon-Acetaminophn 10-325] 1 each PO Q4H PRN PRN Reason: Pain Trazodone HCl 100 mg PO HS Multivitamin [Multi-Vitamin Daily] 1 each PO DAILY Hctz/Triamterene 25/37.5 mg [Maxzide 25MG] 2 tab PO DAILY Docusate Sodium [Stool Softener] 100 mg PO DAILY Citalopram Hydrobromide [Citalopram HBr] 40 mg PO HS Celecoxib [Celebrex] 100 mg PO BID Atorvastatin Calcium 20 mg PO DAILY ALPRAZolam [Alprazolam] 0.5 mg PO HS PANTOPRAZOLE 40 mg Tablet [Protonix 40MG Tablet] 40 mg PO QAM Metoprolol Tartrate 50 mg [Lopressor 50 MG] 50 mg PO BID Levothyroxine Sodium 50 Mcg [Synthroid 50 Mcg] 50 mcg PO DAILY Furosemide 20 mg [Lasix 20 mg] 20 mg PO DAILY Glucosamine Sulfate 2 tab PO DAILY [place]-3 Fatty Acids [[place]-3] 4,000 mg PO DAILY Clotrimazole/Betamet Diprop [Lotrisone Cream] 15 gm TP BID PRN PRN Reason: EXCORIATION Calcium Carb/Vitamin D3/Vit K1 [Calcium + D Soft Chewable Tab] 1 each PO BID Aspirin [Ecotrin] 325 mg PO BID Metformin HCl 500 mg PO HS Potassium Chloride 10 Meq Tab* [Klor Con 10 MEQ] 10 meq PO BID Instructions: Total Knee Replacement (DC), Postop Total Knee Replacement Exercises Lying Down, Postop Total Knee Replacement Exercises Seated or Standing Additional Instructions: [facility] WILL CONTACT YOU AND ARRANGE YOUR FIRST VISIT. YOU MAY CONTACT THEM AT [phone] FOR ANY NEEDS. Follow up with: OSCAR VAUGHN [NON-STAFF PHY W/O PRIVILEGES] - 04/26/19 8:00 am INNA SORENSEN MD [Primary Care Provider] - 05/14/19 2:00 pm
== END 2019-05-08 15:00 | disposition home or self-care (01) | DRG 561 ==
LOC: MED SURG 16:28 → OBSVTOIN 16:28
PROVIDERS: ADMIT General Practice; ATTEND General Practice
DX: Z47.1 Aftercare following joint replacement surgery (principal); Z96.651 Presence of right artificial knee joint; Z79.899 Other long term (current) drug therapy; E11.9 Type 2 diabetes mellitus without complications; I10 Essential (primary) hypertension; E05.90 Thyrotoxicosis, unspecified without thyrotoxic crisis or storm; E78.00 Pure hypercholesterolemia, unspecified; M79.89 Other specified soft tissue disorders; R60.0 Localized edema; J02.9 Acute pharyngitis, unspecified
CPT/HCPCS: 36415; 80048; 84132; 85025; 93971; 97110-GP; A9270-GY

== ENCOUNTER 2019-05-16 21:34 | Emergency (ER) | payer MEDICARE, OTHER ==
[2019-05-16] MEDS ORDERED: ULTRAM 50 MG PO ONE (22:50)
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
[2019-05-16] MEDS ORDERED: ULTRAM 50 MG ONE (22:58)
[2019-05-16 23:14] LABS: BASOPHIL % 0.3 % (0.0-0.4); Basophil (Absolute #) 0.03 (0-0.4); Eosinophil % 1.9 % (0.00-5.0); Eosinophil (Absolute #) 0.16 (0-0.5); Granulocyte Absolute (ANC) 5.02 (1.4-6.9); Granulocytes % 58.4 % (36.0-66.0); Hematocrit 35.4 % (35-47); Hemoglobin 11.8 gm/dl (12.0-16.0); Lymphocyte (Absolute #) 2.54 (1.0-4.6); Lymphocytes % 29.6 % (24.0-44.0); Mean Cell Volume 95.7 fl (78-100); Mean Corpuscular Hgb Concent. 33.3 g/dl (32-36); Mean Platelet Volume 8.5 fl (6-9.5); Monocyte (Absolute #) 0.84 (0.0-1.3); Monocytes % 9.8 % (0.0-12.0); Platelet Count 294 K/mm3 (150-450); Red Cell Distribution Width 12.8 % (11.5-14.0); White Blood Count 8.6 K/mm3 (4.0-10.5)
[2019-05-16 23:15] LABS: Mean Corpuscular Hemoglobin 31.8 pg (26-32)
[2019-05-16 23:21] LABS: ALBUMIN 4.2 g/dL (3.5-5.0); ALKALINE PHOSPHATASE 99 U/L (38-126); ANION GAP 11.1 MEQ/L (5-15); BLOOD UREA NITROGEN 10 mg/dL (7-17); CHLORIDE 85 mmol/L (98-107); Calcium 9.4 mg/dL (8.4-10.2); Carbon Dioxide 37 mmol/L (22-30); Creatinine 1 0.71 mg/dL (0.52-1.04); Glucose 111 mg/dL (74-106); Potassium 3.3 mmol/L (3.5-5.1); SGOT/AST 30 U/L (14-36); SGPT/ALT 18 U/L (0-35); SODIUM 130 mmol/L (137-145); Total Protein 7.6 g/dL (6.3-8.2)
[2019-05-17] MEDS ORDERED: NORCO 5/325 MG PO ONE (00:50)
[2019-05-17 01:10] VITALS: BP 145/51; PULSE 72; O2SAT 94
[2019-05-17] MEDS ORDERED: NORCO 5/325 MG ONE (01:12)
--- NOTE | 2019-05-17 08:32 | XRAY ---
Indication: Right leg pain. Two-dimensional sonogram and color Doppler imaging of the major venous vessels of the right leg was performed. Comparison: April 27, 2019. Again no thrombus seen in the examined deep venous vessels of the right leg including greater saphenous vein. Veins demonstrate normal compressibility. Venous waveforms are normal with and without augmentation. Impression: Right leg again negative for DVT.
== END 2019-05-17 01:28 | disposition home or self-care (01) ==
LOC: ED 21:34
DX: M25.561 Pain in right knee (principal); M79.604 Pain in right leg
CPT/HCPCS: 36415; 80053; 85025; 85379; 93971; 99284; A9270-GY